=== PATIENT | female | born 1925 | race African-American/Black ===

== ENCOUNTER 2016-06-12 09:40 | Emergency (ER) | payer MEDICARE, OTHER ==
[~2016-06-12] VITALS: Ht 154.9 cm; Wt 51.7 kg
[~2016-06-12 09:40] MED LIST: CALCIUM 500 MG1 EACH PO; DONEPEZIL HCL10 MG ORAL; FISH OIL500 MG PO; IRON45 MG PO; LEVETIRACETAM500 MG ORAL; LISINOPRIL10 MG ORAL; MULTIVITAMINS1 EA11 PO; NORCO 5-325 TA1 EACH ORAL; TYLENOL500 MG PO; VIT B12 PO; VIT C PO; VIT D PO; VIT E PO
[2016-06-12 10:00] VITALS: BP 131/72
--- NOTE | 2016-06-12 11:06 | Diagnostic Imaging Report ---
Indication: Pain Findings: 3 views of the left wrist were obtained. There is an acute nondisplaced fracture of the distal ulna in the region of the metaphysis. The bones are osteopenic. There is soft tissue swelling associated with the fracture. Impression: Acute nondisplaced fracture of the distal ulna.
--- NOTE | 2016-06-12 11:53 | Diagnostic Imaging Report ---
Indication: pain Findings: 3 views of the left hand were obtained. The bones are osteopenic. There is a fracture of the distal right ulnar metaphysis with some soft tissue swelling present. Generalized joint space narrowing noted. Impression: Acute fracture of the distal ulnar metaphysis.
[2016-06-12 12:04] VITALS: BP 131/72
--- NOTE | 2016-06-13 07:48 | Emergency Room Report ---
History of Present Illness General Chief Complaint: Upper Extremity Injury Source: Patient, Family Member Present Illness HPI Patient present with family for complaints of pain to the left hand and wrist Approximately 6 days ago patient had an injury where she hit her hand on the car door Since then has had continued swelling patient has continued to complain of the discomfort in that area and patient was brought in for further eval No complaints of elbow pain or shoulder pain there was no other reports a fall it is difficult to obtain a numerical reports of the pain however approximately 08/03 No reports of syncope or other fall Allergies: Coded Allergies: No Known Allergies (Unverified , 08/03/15) Patient History Past Medical History: see triage record Pertinent Family History: none Last Menstrual Period: na Reviewed Nursing Documentation: PMH: Agreed, PSxH: Agreed Nursing Documentation-PMH Past Medical History: No History, Except For Hx Hypertension: Yes Hx Cancer: No Hx Gastrointestinal Problems: No Hx Neurological Problems: Yes Hx Dementia: Yes Hx Seizures: Yes Review of Systems All Other Systems: negative except mentioned in HPI Physical Exam Vital Signs Date Time Temp Pulse Resp B/P Pulse Ox O2 Delivery O2 Flow Rate FiO2 06/12/16 09:45 98.6 62 18 131/72 100 Room Air Sp02 EP Interpretation: reviewed, normal General Appearance: well appearing, no apparent distress Head: normocephalic, atraumatic Eyes: bilateral eye EOMI, bilateral eye PERRL ENT: normal pharynx, no angioedema Neck: normal inspection, full range of motion, supple Respiratory: normal breath sounds Cardiovascular #1: regular rate, rhythm Gastrointestinal: soft, no mass Musculoskeletal: other - Patient has swelling of the distal ulnar, mild swelling of the dorsal lateral hand Neurologic: alert, oriented x3 Skin: other - As noted above Procedures Splinting Progress volar splint applied to the left hand and wrist, this does immobilize the wrist well Patient remains neurovascularly intact on recheck myself Medical Decision Making Diagnostic Impression: Primary Impression: wrist fracture ER Course Patient's imaging study reveals a distal ulnar fracture Given the patient's age and mobility difficulty the most appropriate splint was applied This injury occurred 6 days ago Patient did refuse any medications here in the emergency room In a stable for close outpatient follow Other X-Ray Diagnostic Results Other X-Ray Diagnostic Results #1: EP Interpretation: Yes Findings: no dislocation, other - Distal ulnar fracture Number of Views: 3 - left wrist Other X-Ray Diagnostic Results #2: EP Interpretation: Yes Findings: no fractures, no dislocation, no soft tissue swelling Number of Views: 3 - left hand Last Vital Signs Date Time Temp Pulse Resp B/P Pulse Ox O2 Delivery O2 Flow Rate FiO2 06/12/16 12:04 98.6 62 18 131/72 100 Room Air Status: improved Disposition: HOME, SELF-CARE Condition: Improved Referrals: NON PHYSICIAN (PCP) NESS MERCEDES Patient Instructions: Ulnar Fracture Additional Instructions: Patient is provided with the discharge instructions notified to follow up with primary doctor in the next 2-3 days otherwise return to the er with any worsening symptoms. REBA COSBY D.O. Jun 13, 2016 07:48
== END 2016-06-12 12:06 | disposition home or self-care (01) ==
LOC: EMR 10:35
DX: S52.602A Unspecified fracture of lower end of left ulna, initial encounter for closed fracture (principal); I10 Essential (primary) hypertension; F03.90 Unspecified dementia, unspecified severity, without behavioral disturbance, psychotic disturbance, mood disturbance, and anxiety; W22.09XA Striking against other stationary object, initial encounter; Y92.810 Car as the place of occurrence of the external cause; Y99.8 Other external cause status
CPT/HCPCS: 99283

== ENCOUNTER 2016-10-25 21:45 | Inpatient (IN) | payer OTHER ==
[~2016-10-25] VITALS: Ht 172.7 cm; Wt 50.3 kg
[2016-10-25 22:30] VITALS: BP 154/51
[2016-10-26] VITALS (7 sets, daily range): BP systolic 134–171; BP diastolic 60–83
--- NOTE | 2016-10-26 00:39 | Emergency Room Report ---
History of Present Illness General Chief Complaint: Multiple Trauma/Fall Source: Family Member Present Illness HPI Patient is a 89-year-old female brought in for a fall. The patient noted be and ambulatory after she fell. She reported having increased pain to her right hip as well as to her low back. Patient prior history of recent falls. The patient reported having no numbness to her extremities. She reported being able to move her leg. She stated that she had worsened pain with movement and was sharp in nature. Allergies: Coded Allergies: No Known Allergies (Unverified , 08/03/15) Patient History Past Medical History: see triage record Last Menstrual Period: Menopause Now: No Reviewed Nursing Documentation: PMH: Agreed, PSxH: Agreed Nursing Documentation-PMH Past Medical History: No History, Except For Hx Hypertension: Yes Hx Cancer: No Hx Gastrointestinal Problems: No Hx Neurological Problems: Yes Hx Dementia: Yes Hx Seizures: Yes Review of Systems All Other Systems: negative except mentioned in HPI Physical Exam Vital Signs Date Time Temp Pulse Resp B/P Pulse Ox O2 Delivery O2 Flow Rate FiO2 10/25/16 22:02 98.6 69 16 120/86 98 Room Air Sp02 EP Interpretation: reviewed, normal General Appearance: normal inspection, well appearing, no apparent distress, alert Head: atraumatic ENT: normal ENT inspection, hearing grossly normal, normal voice Neck: normal inspection, full range of motion, supple, no bony tend Respiratory: normal inspection, lungs clear, normal breath sounds, no respiratory distress, no retraction, no wheezing Cardiovascular #1: regular rate, rhythm, no edema Gastrointestinal: normal inspection, normal bowel sounds, non tender, soft, no guarding, no hernia Genitourinary: no CVA tenderness Musculoskeletal: normal inspection, normal range of motion, other - tenderness to lower back Neurologic: normal inspection, alert, responsive, speech normal, motor weakness Psychiatric: mood/affect normal Skin: normal inspection, normal color, no rash Medical Decision Making Diagnostic Impression: Primary Impression: Fall Additional Impressions: Closed right hip fracture Spondylolisthesis at L4-L5 level ER Course Patient presented after fall. Differential diagnosis included was not limited to neck fracture, CVA, close head injury, syncopal episode, basilar ischemia, hip fracture among others. The patient presented at her baseline mental status per family. Patient was noted to have pain to her right hip CT imaging of the lumbar spine as well as abdomen pelvis was obtained. Have the showed some spondylolisthesis L4 over L5 as well as a fracture of the right femoral neck. Patient was discussed with Dr. Jani Elam for inpatient management. Emely was contacted for orthopedic consult. Labs Test 10/26/16 01:10 White Blood Count 8.0 K/UL (4.8-10.8) Red Blood Count 3.41 M/UL (4.20-5.40) Hemoglobin 10.2 G/DL (12.0-16.0) Hematocrit 32.6 % (37.0-47.0) Mean Corpuscular Volume 96 FL (80-99) Mean Corpuscular Hemoglobin 30.0 PG (27.0-31.0) Mean Corpuscular Hemoglobin Concent 31.3 G/DL (32.0-36.0) Red Cell Distribution Width 12.2 % (11.6-14.8) Platelet Count 143 K/UL (150-450) Mean Platelet Volume 7.6 FL (6.5-10.1) Neutrophils (%) (Auto) 79.5 % (45.0-75.0) Lymphocytes (%) (Auto) 9.9 % (20.0-45.0) Monocytes (%) (Auto) 9.5 % (1.0-10.0) Eosinophils (%) (Auto) 0.7 % (0.0-3.0) Basophils (%) (Auto) 0.3 % (0.0-2.0) EKG Diagnostic Results Rate: normal - 78 Rhythm: NSR ST Segments: no acute changes Chest X-Ray Diagnostic Results EP Interpretation: Yes Findings: no consolidation, no effusion, no pneumothorax, no acute cardiopulmonary disease Number of Views: 1 Last Vital Signs Date Time Temp Pulse Resp B/P Pulse Ox O2 Delivery O2 Flow Rate FiO2 10/25/16 22:30 74 18 154/51 100 Room Air 10/25/16 22:02 98.6 Status: unchanged Disposition: ADMITTED INPATIENT Condition: Serious Referrals: NON PHYSICIAN (PCP) Winston Thacker Oct 26, 2016 00:38
[2016-10-26 01:31] LABS: BASOPHILS % (AUTO) 0.3 % (0.0-2.0); EOSINOPHILS % (AUTO) 0.7 % (0.0-3.0); LYMPHOCYTES % (AUTO) 9.9 % (20.0-45.0); MEAN CORPUSCULAR HGB CONC 31.3 G/DL (32.0-36.0); MEAN CORPUSCULAR VOLUME 96 FL (80-99); MEAN PLATELET VOLUME 7.6 FL (6.5-10.1); MONOCYTES % (AUTO) 9.5 % (1.0-10.0); NEUTROPHILS % (AUTO) 79.5 % (45.0-75.0); PLATELET COUNT 143 K/UL (150-450); RED BLOOD COUNT 3.41 M/UL (4.20-5.40); RED CELL DISTRIBUTION WIDTH 12.2 % (11.6-14.8)
[2016-10-26 01:43] LABS: INR 0.9 (0.9-1.1); PROTHROMBIN TIME 9.7 SEC (9.30-11.50)
[2016-10-26 01:46] LABS: ALANINE AMINOTRANSFERASE 26 U/L (3-33); ALBUMIN/GLOBULIN RATIO 1.5 (1.0-2.7); ANION GAP 17 (5-15); ASPARTATE AMINO TRANSFERASE 25 U/L (5-40); CALCIUM 9.8 mg/dL (8.6-10.2); CARBON DIOXIDE 24 mEQ/L (20-30); CHLORIDE 96 mEQ/L (98-107); CREATININE 1.6 mg/dL (0.5-0.9); HEMOLYSIS 3; POTASSIUM 5.1 mEQ/L (3.4-4.9); SODIUM 137 mEQ/L (135-145); TROPONIN I < 0.30 ng/mL (<=0.30)
[2016-10-26] MEDS ORDERED: Morphine Sulfate 2mg/ml Inj IVP ONE (02:00)
[2016-10-26] MEDS ORDERED: PROCRIT10000 UNIT SUBQ (02:51)
[2016-10-26] MEDS ORDERED: LEVETIRACETAM750 MG ORAL (02:51)
[2016-10-26] MEDS ORDERED: B COMPLEX1 EACH ORAL (02:51)
[2016-10-26] MEDS ORDERED: COLACE100 MG ORAL ×2 (02:51)
[2016-10-26] MEDS ORDERED: ASPIR 8181 MG ORAL (02:51)
[2016-10-26] MEDS ORDERED: Morphine Sulfate 2mg/ml Inj IVP PRN (06:15)
[2016-10-26] MEDS ORDERED: Miralax 17gm pkt ORAL PRN (06:15)
[2016-10-26] MEDS ORDERED: Zolpidem 5mg tab ORAL PRN (06:15)
[2016-10-26] MEDS ORDERED: Mylanta II UD 30ml ORAL PRN (06:15)
[2016-10-26] MEDS ORDERED: LORazepam Inj 2mg/ml 1ml IV PRN (06:15)
--- NOTE | 2016-10-26 08:30 | Consultation ---
Consult Note Consult Note 89 yo female with mechanical fall and rt hip pain CT Rt femoral neck fracture d/w pt rec for ORIF with pinning vs holly arthroplasty. Will order STAT pelvic XRay to confirm surgical plan plan for OR tomorrow. risks discussed RAUL KERN Oct 26, 2016 08:30
[2016-10-26] MEDS ORDERED: Sodium Polystyrene Sulfonate 15gm Powder ORAL ONE (09:45)
--- NOTE | 2016-10-26 09:49 | Diagnostic Imaging Report ---
Indication: Back pain Technique: Continuous helical transaxial imaging of the lumbar spine was obtained from the lung bases to the pubic symphysis. No IV contrast was administered. Coronal 2-D reformats were also obtained. Study obtained in a Siemens sensation [address] Total Dose length Product (DLP): [address] Dose Index Volume (CTDIvol): 12 mGy Comparison: None Findings: There is no acute fracture identified. Bones are osteopenic. At L4-5 there is anterolisthesis grade 1-2 associated with narrowed vacuum disc and osteophytes. Moderate facet arthropathy noted at this level with hypertrophied regular facets. There is narrowing of the neural foramen and lateral recess bilaterally. There is central stenosis at this level. No definite pars interarticularis defect is identified. L2-3 L3-4 also demonstrates central stenosis, lateral recess stenosis and bilateral neural foraminal narrowing. L1-2 shows bilateral neural foraminal stenosis due to facet arthropathy. L5-S1 intervertebral fusion is noted. Vacuum phenomena and osteophytes noted within the sacroiliac joints bilaterally. Arterial vascular calcifications in the aorta iliac arteries noted. Impression: No acute injury. Moderate spondylosis at multiple levels resulting in variable degrees of central, lateral recess and neural foraminal stenosis. This may be better evaluated with MRI. L4-5 anterolisthesis. No associated spondylolysis. Osteoporosis Atherosclerotic vascular disease. [facility] has communicated the preliminary results to the Emergency Department. Their findings are largely concordant with this report. The CT scanner at [facility] is accredited by the [employer] and the scans are performed using dose optimization techniques as appropriate to a performed exam including Automatic Exposure control.
[2016-10-26] MEDS: Donepezil 10mg tab ORAL SCH (10:25)
--- NOTE | 2016-10-26 10:33 | Diagnostic Imaging Report ---
Indication: With pain and trauma Technique: Continuous helical transaxial imaging of the pelvis was obtained from the iliac crest to the pubic symphysis. Coronal 2-D reformats were also obtained. Study obtained in a Siemens sensation [address] Intravenous non-ionic contrast was administered. Total Dose length Product (DLP): [address] Dose Index Volume (CTDIvol): 10.2 mGy Comparison: None Findings: No acute fracture is identified. The bones are osteopenic. Degenerative changes of both hips are noted with osteophyte formation and narrowing. There is a fracture of the right femoral neck. The fracture appears older as there is sclerosis at the endosteal or fractured ends of the bone. There is slight impaction of the fracture noted. There is no soft tissue swelling. Moderate mural calcification involving the iliac arteries noted. Impression: Old fracture of the right femoral neck with impaction. Degenerative changes of both hip joints and sacroiliac joints Osteoporosis Atherosclerotic vascular disease The CT scanner at [facility] is accredited by the [employer] and the scans are performed using dose optimization techniques as appropriate to a performed exam including Automatic Exposure control.
--- NOTE | 2016-10-26 11:57 | Diagnostic Imaging Report ---
Indication: Dyspnea Comparison: 01/28/11 A single view chest radiograph was obtained. Findings: The bones are osteopenic. The heart is normal in size. Aorta is calcified. Impression: No acute disease
--- NOTE | 2016-10-26 13:20 | Diagnostic Imaging Report ---
Indication: pain Findings: Single AP view of the pelvis was performed. There is a fracture of the right femoral neck with impaction. On the plain film examination the fracture appears acute to subacute. By CT, there was sclerosis at the fracture ends consistent with callus formation as part of the healing process. The bones are osteopenic. There is a Franco catheter present. Impression: Subacute fracture of the right femoral neck
--- NOTE | 2016-10-26 14:33 | Consultation ---
History of Present Illness General Chief Complaint: Multiple Trauma/Fall Present Illness Allergies: Coded Allergies: No Known Allergies (Unverified , 08/03/15) Medication History Scheduled Acetaminophen* (Tylenol*), 500 MG PO BID, (Reported) Aspirin* (Aspir 81*), 81 MG ORAL DAILY, (Reported) Calcium Carb&Cit/Mag12/Vit D3 (Calcium 500 Mg Tablet), 1 EACH PO DAILY, ( Reported) Docusate Sodium* (Colace*), 100 MG ORAL DAILY, (Reported) Docusate Sodium* (Colace*), 100 MG ORAL TWICE A DAY, (Reported) Donepezil Hcl* (Donepezil Hcl*), 10 MG ORAL DAILY, (Reported) Epoetin Heraclio (Procrit), 10,000 UNIT SUBQ ONCE A WEEK, (Reported) Iron,Carbonyl (Iron), 65 MG PO DAILY, (Reported) Levetiracetam (Levetiracetam), 750 MG ORAL DAILY, (Reported) Levetiracetam* (Levetiracetam*), 500 MG ORAL TWICE A DAY, (Reported) Lisinopril* (Lisinopril*), 5 MG ORAL DAILY, (Reported) Multivitamin (Multivitamins), 1 EACH PO DAILY, (Reported) [place]-3 Fatty Acids (Fish Oil), 500 MG PO DAILY, (Reported) Vitamin B Complex (B Complex), 1 TAB ORAL DAILY, (Reported) [Vit B12], 1,000 PO DAILY, (Reported) [Vit C], 500 MG PO DAILY, (Reported) [Vit D], 1,000 PO DAILY, (Reported) [Vit E], 400 PO DAILY, (Reported) Scheduled PRN Hydrocodone Bit/Acetaminophen 5-325* ([place] 5-325*), 1 TAB ORAL Q4H PRN for For Pain Patient History Healthcare decision maker KARTHIK GARCIA NIECE Resuscitation status Full Code Advanced Directive on File No Physical Exam Last 24 Hour Vital Signs Date Time Temp Pulse Resp B/P Pulse Ox O2 Delivery O2 Flow Rate FiO2 10/26/16 14:00 98.8 92 18 171/74 98 Room Air 10/26/16 08:00 98.6 82 20 145/65 98 Room Air 10/26/16 04:00 98.1 87 20 158/83 95 Room Air 10/26/16 02:55 75 16 150/70 98 Room Air 10/26/16 02:50 98.4 76 17 156/76 98 Room Air 10/26/16 01:00 98.6 10/26/16 00:30 73 18 166/74 99 Room Air 10/25/16 22:30 74 18 154/51 100 Room Air 10/25/16 22:02 98.6 69 16 120/86 98 Room Air Intake and Output 10/25/16 10/26/16 19:00 07:00 Output Total 200 ml Balance -200 ml Output Urine Total 200 ml Laboratory Tests Test 10/26/16 01:10 White Blood Count 8.0 K/UL (4.8-10.8) Red Blood Count 3.41 M/UL (4.20-5.40) L Hemoglobin 10.2 G/DL (12.0-16.0) L Hematocrit 32.6 % (37.0-47.0) L Mean Corpuscular Volume 96 FL (80-99) Mean Corpuscular Hemoglobin 30.0 PG (27.0-31.0) Mean Corpuscular Hemoglobin Concent 31.3 G/DL (32.0-36.0) L Red Cell Distribution Width 12.2 % (11.6-14.8) Platelet Count 143 K/UL (150-450) L Mean Platelet Volume 7.6 FL (6.5-10.1) Neutrophils (%) (Auto) 79.5 % (45.0-75.0) H Lymphocytes (%) (Auto) 9.9 % (20.0-45.0) L Monocytes (%) (Auto) 9.5 % (1.0-10.0) Eosinophils (%) (Auto) 0.7 % (0.0-3.0) Basophils (%) (Auto) 0.3 % (0.0-2.0) Prothrombin Time 9.7 SEC (9.30-11.50) Prothromb Time International Ratio 0.9 (0.9-1.1) Activated Partial Thromboplast Time 26 SEC (23-33) Sodium Level 137 mEQ/L (135-145) Potassium Level 5.1 mEQ/L (3.4-4.9) H Chloride Level 96 mEQ/L (98-107) L Carbon Dioxide Level 24 mEQ/L (20-30) Anion Gap 17 (5-15) H Blood Urea Nitrogen 32 mg/dL (7-23) H Creatinine 1.6 mg/dL (0.5-0.9) H Estimat Glomerular Filtration Rate mL/min (>60) Glucose Level 171 mg/dL (74-106) H Calcium Level 9.8 mg/dL (8.6-10.2) Total Bilirubin < 0.2 mg/dL (0.0-1.2) Aspartate Amino Transf (AST/SGOT) 25 U/L (5-40) Alanine Aminotransferase (ALT/SGPT) 26 U/L (3-33) Alkaline Phosphatase 65 U/L (35-104) Troponin I < 0.30 ng/mL (<=0.30) Total Protein 7.0 g/dL (6.6-8.7) Albumin 4.2 g/dL (3.5-5.2) Globulin 2.8 g/dL Albumin/Globulin Ratio 1.5 (1.0-2.7) Height (Feet): 5 Height (Inches): 8.00 Weight (Pounds): 111 Medications Current Medications Medications (Trade) Dose Ordered Sig/Lucy Route PRN Reason Start Time Stop Time Status Last Admin Dose Admin Acetaminophen (Tylenol) 650 mg Q4H PRN ORAL fever 10/26/16 06:15 11/25/16 06:14 Al Hydroxide/Mg Hydroxide (Mylanta II) 30 ml Q6H PRN ORAL dyspepsia 10/26/16 06:15 11/25/16 06:14 Dextrose (Dextrose 50%) STAT PRN IV Hypoglycemia 10/26/16 06:15 11/25/16 06:14 Donepezil HCl (Aricept) 10 mg DAILY ORAL 10/26/16 09:00 11/25/16 08:59 10/26/16 10:25 Levetiracetam (Keppra) 750 mg DAILY ORAL 10/26/16 09:00 11/25/16 08:59 10/26/16 10:26 Lorazepam (Ativan 2mg/ml 1ml) 0.5 mg Q4H PRN IV For Anxiety 10/26/16 06:15 11/02/16 06:14 Morphine Sulfate (Morphine Sulfate) 1 mg Q4H PRN IVP For Pain 10/26/16 06:15 11/02/16 06:14 Ondansetron HCl (Zofran) 4 mg Q6H PRN IVP Nausea & Vomiting 10/26/16 06:15 11/25/16 06:14 Polyethylene Glycol (Miralax) 17 gm HSPRN PRN ORAL Constipation 10/26/16 06:15 11/25/16 06:14 Zolpidem Tartrate (Ambien) 5 mg HSPRN PRN ORAL Insomnia 10/26/16 06:15 11/25/16 06:14 SABINO CARPENTER Oct 26, 2016 14:33
--- NOTE | 2016-10-26 22:15 | History and Physical Report ---
DATE OF ADMISSION: 10/26/2016 TIME SEEN: 2 p.m. CONSULTANTS: 1. Gabriel Han M.D. 2. Connie Romero M.D. CHIEF COMPLAINT: Fall and right hip fracture. BRIEF HISTORY: The patient is an 89-year-old female who lives at home presents with history of fall. No passing out, apparently slipped, she fell on the right side, sustained a right hip fracture, admitted to medical floor for treatment of the above, currently calm in bed. No complaints. No chest pain. No shortness of breath. No nausea, vomiting, or diarrhea. PAST MEDICAL HISTORY: Spondylolisthesis and weakness. PAST SURGICAL HISTORY: None. MEDICATIONS: Aricept, Keppra, Tylenol, morphine, MiraLAX, Zofran, Ativan, dextrose, Ambien. ALLERGIES: Denies. SOCIAL HISTORY: No smoking. No alcohol. No intravenous drug use. FAMILY HISTORY: Noncontributory. PHYSICAL EXAMINATION: GENERAL: The patient is calm in bed, oriented x2, no acute distress. VITAL SIGNS: Temperature 98, pulse 92, respirations 18, and blood pressure 171/74. CARDIOVASCULAR: No murmur. LUNGS: Distant and clear. ABDOMEN: Positive bowel sounds. Nontender and nondistended. EXTREMITIES: No cyanosis, clubbing, or edema. Right leg slightly shortened about half inch and externally rotated by 45 degrees. NEUROLOGIC: Cranial nerves II through XII are grossly intact. Deep tendon reflexes 2+. Muscle strength 4/5. LABORATORY DATA: Hemoglobin 10.2, otherwise is CBC is normal. BMP shows potassium 5.1, chloride 96. BUN and creatinine of 32 and 1.6. INR 0.9. ASSESSMENT: 1. Fall, right hip fracture. 2. Anemia. 3. Weakness. 4. . 5. Hypertension. PLAN: 1. Continue premedicatoions. 2. OT/PT. 3. Dietary evaluation. 4. CBC and BMP in the morning. 5. Preop for surgery. Dr. Han, Dr. Romero, Dr. Hunter, Dr. Greenberg to consult. We will continue to follow this patient medically. Jani Elam D.O. DR: Rickie JOB#: [id number] CC:
[2016-10-27] VITALS (13 sets, daily range): BP systolic 106–144; BP diastolic 57–78
--- NOTE | 2016-10-27 01:15 | Discharge Summary 2 SIG ---
DATE OF ADMISSION: 10/26/2016 HISTORY OF PRESENT ILLNESS: This is an 89-year-old female, who was brought in after a fall. She had a fall few days ago and was walking and noted to have right hip pain while she was walking. She was brought in to [facility] and noted to have a right femoral neck fracture. Orthopedic consult has been called to recommend treatment, which possibly include surgery. PAST MEDICAL HISTORY: None. PAST SURGICAL HISTORY: None. CURRENT MEDICATIONS: Please see chart. ALLERGIES: No known drug allergies. SOCIAL HISTORY: The patient indicates she ambulates independently at baseline. She has not had any pain in the area. PHYSICAL EXAMINATION: She is a pleasant woman. She is cooperative with examination. She has pain and tenderness on palpation on the right hip with shortening and rotation. She is neurovascularly intact to wiggle her toes and has no significant swelling of the lower extremity. No evidence of skin breakdown. IMAGINING: CT scan of the hip is reviewed. There is evidence of a right femoral neck fracture that appears to be impacted and not significantly displaced. Plain film pelvis x-ray will be ordered to further assess alignment of this area. IMPRESSION: Right hip femoral neck fracture. DISCUSSION: At this time, I discussed with the patient my findings. She has a hip fracture and normally is independent with her activities and I discussed with her both surgical and nonsurgical treatment for this. I recommend at this point going forward with surgery in the form of open reduction internal fixation with percutaneous pinning versus right hip hemiarthroplasty. I have explained both procedures to her and she does verbalize understanding of what needs to be done. Final surgical determination will be based upon the x-rays in accordance with the CT scan at which point, the surgery will be scheduled and planned accordingly. Risks of surgery including nerve injury, vessel injury, , infection, bleeding were discussed. The risks of DVT, PE, risks of fracture, hardware failure, hip dislocation, leg length discrepancy and need for revision surgery were all discussed. She understands she should be on a walker for a short time and will require short-term rehabilitation and she is aware of that. We will get her set up for surgery tomorrow and have her followup with preoperative medical clearance. Bing Muccigrosso, P.A. DR: CAMPBELL JOB#: [id number] CC: RIOS
[2016-10-27 06:20] LABS: BASOPHILS % (AUTO) 0.8 % (0.0-2.0); LYMPHOCYTES % (AUTO) 16.1 % (20.0-45.0); MEAN CORPUSCULAR HEMOGLOBIN 30.2 PG (27.0-31.0); MEAN CORPUSCULAR HGB CONC 31.4 G/DL (32.0-36.0); MEAN CORPUSCULAR VOLUME 96 FL (80-99); MEAN PLATELET VOLUME 7.9 FL (6.5-10.1); MONOCYTES % (AUTO) 14.5 % (1.0-10.0); NEUTROPHILS % (AUTO) 65.6 % (45.0-75.0); PLATELET COUNT 143 K/UL (150-450); RED BLOOD COUNT 3.33 M/UL (4.20-5.40); WHITE BLOOD COUNT 8.1 K/UL (4.8-10.8)
[2016-10-27 06:37] LABS: ALANINE AMINOTRANSFERASE 22 U/L (3-33); ALBUMIN/GLOBULIN RATIO 1.3 (1.0-2.7); ANION GAP 14 (5-15); ASPARTATE AMINO TRANSFERASE 22 U/L (5-40); CALCIUM 9.2 mg/dL (8.6-10.2); CARBON DIOXIDE 28 mEQ/L (20-30); CHLORIDE 96 mEQ/L (98-107); CHOLESTEROL 212 mg/dL (< 200); CHOLESTEROL/HDL RATIO 2.1 (3.3-4.4); CREATININE 1.5 mg/dL (0.5-0.9); HEMOLYSIS 1; LDL CHOLESTEROL (CALC.) 104 mg/dL (60-99); POTASSIUM 3.8 mEQ/L (3.4-4.9); SODIUM 138 mEQ/L (135-145); TOTAL PROTEIN 6.9 g/dL (6.6-8.7)
[2016-10-27] MEDS ORDERED: Bacitracin 50000 Units Vial ONE (07:36)
--- NOTE | 2016-10-27 07:46 | Pre-Procedure Note/Attestation ---
Pre-Procedure Note/Attestation Complete Prior to Procedure Planned Procedure: right Procedure Narrative: rt hip ORIF Indications for Procedure Pre-Operative Diagnosis: rt hip fracture Attestation I attest that I discussed the nature of the procedure; its benefits; risks and complications; and alternatives (and the risks and benefits of such alternatives ), prior to the procedure, with the patient (or the patient's legal licensing representative). I attest that, if there was a reasonable possibility of needing a blood transfusion, the patient (or the patient's legal licensing representative) was given the [facility] standardized written summary, pursuant to the [place] Blood Safety Act ([place] Health and Safety Code # 1645, as amended). I attest that I re-evaluated the patient just prior to the surgery and that there has been no change in the patient's H&P, except as documented below:NONE NESS MERCEDES Oct 27, 2016 07:46
[2016-10-27] MEDS ORDERED: HYDROmorphone 1mg/ml Carpuject SUBQ PRN (08:00)
[2016-10-27] MEDS ORDERED: Norco 5mg/325mg tab ORAL PRN ×2 (08:00→09:15)
[2016-10-27] MEDS ORDERED: Morphine Sulfate PF 10 ML ONE (08:01)
[2016-10-27] MEDS ORDERED: Bupivacaine 0.5% Inj 30 ml vial INJ ONE (08:01)
[2016-10-27] MEDS ORDERED: LR 1000ml 1,000 ML IVLG SCH (09:14)
--- NOTE | 2016-10-27 09:14 | Anethesia Preoperative Eval ---
Anesthesia Pre-op PMH/ROS General Date of Evaluation: Oct 27, 2016 Time of Evaluation: 08:01 Anesthesiologist: Elias ASA Score: ASA 3 - Emergency Mallampati Score Class I : Soft palate, uvula, fauces, pillars visible Class II: Soft palate, uvula, fauces visible Class III: Soft palate, base of uvula visible Class IV: Only hard plate visible Mallampati Classification: Class II Surgeon: Emely Diagnosis: R Hip Fracture Surgical Procedure: ORIF R Hip Fracture Anesthesia History: none Family History: no anesthesia problems Allergies: Coded Allergies: No Known Allergies (Unverified , 08/03/15) Medications: see eMAR Past Medical History Cardiovascular: Reports: HTN Gastrointestinal/Genitourinary: Reports: GERD Neurologic/Psychiatric: Reports: dementia, other - Seizures Hematology/Immune: Reports: anemia PSxH Narrative: Wrist Fracture Anesthesia Pre-op Phys. Exam Physician Exam Last Vital Signs Date Time Temp Pulse Resp B/P Pulse Ox O2 Delivery O2 Flow Rate FiO2 10/27/16 08:12 97.7 86 20 141/62 96 Room Air Constitutional: NAD Neurologic: CN 2-12 intact Cardiovascular: RRR Respiratory: CTA Gastrointestinal: S/NT/ND Airway Exam Mallampati Score: Class II MO: limited ROM: limited Teeth: missing Anesthesia Pre-op A/P Labs Hematology Test 10/27/16 05:10 White Blood Count 8.1 K/UL (4.8-10.8) Red Blood Count 3.33 M/UL (4.20-5.40) L Hemoglobin 10.1 G/DL (12.0-16.0) L Hematocrit 32.1 % (37.0-47.0) L Mean Corpuscular Volume 96 FL (80-99) Mean Corpuscular Hemoglobin 30.2 PG (27.0-31.0) Mean Corpuscular Hemoglobin Concent 31.4 G/DL (32.0-36.0) L Red Cell Distribution Width 12.0 % (11.6-14.8) Platelet Count 143 K/UL (150-450) L Mean Platelet Volume 7.9 FL (6.5-10.1) Neutrophils (%) (Auto) 65.6 % (45.0-75.0) Lymphocytes (%) (Auto) 16.1 % (20.0-45.0) L Monocytes (%) (Auto) 14.5 % (1.0-10.0) H Eosinophils (%) (Auto) 3.0 % (0.0-3.0) Basophils (%) (Auto) 0.8 % (0.0-2.0) Chemistry Test 10/27/16 05:10 Sodium Level 138 mEQ/L (135-145) Potassium Level 3.8 mEQ/L (3.4-4.9) Chloride Level 96 mEQ/L (98-107) L Carbon Dioxide Level 28 mEQ/L (20-30) Anion Gap 14 (5-15) Blood Urea Nitrogen 23 mg/dL (7-23) Creatinine 1.5 mg/dL (0.5-0.9) H Estimat Glomerular Filtration Rate mL/min (>60) Glucose Level 129 mg/dL (74-106) H Calcium Level 9.2 mg/dL (8.6-10.2) Total Bilirubin < 0.2 mg/dL (0.0-1.2) Aspartate Amino Transf (AST/SGOT) 22 U/L (5-40) Alanine Aminotransferase (ALT/SGPT) 22 U/L (3-33) Alkaline Phosphatase 67 U/L (35-104) Total Protein 6.9 g/dL (6.6-8.7) Albumin 4.0 g/dL (3.5-5.2) Globulin 2.9 g/dL Albumin/Globulin Ratio 1.3 (1.0-2.7) Triglycerides Level 45 mg/dL (< 150) Cholesterol Level 212 mg/dL (< 200) H LDL Cholesterol 104 mg/dL (60-99) H HDL Cholesterol 99 mg/dL (> 60) H Cholesterol/HDL Ratio 2.1 (3.3-4.4) L Thyroid Stimulating Hormone (TSH) 2.240 uIU/mL (0.300-4.500) Risk Assessment & Plan Assessment: ASA 3E Plan: Spinal, GA Status Change Before Surgery: No Pre-Antibiotics Dru Gram Ancef IV Given Within 1 Hr of Incision: Yes Time Given: 08:39 Augie Griffin MD Oct 27, 2016 09:14
[2016-10-27] MEDS ORDERED: Hydromorphone 0.5mg/0.5ml inj IVP PRN (09:15)
[2016-10-27] MEDS ORDERED: DiphenhydrAMINE 50mg/ml Inj IVP PRN (09:15)
[2016-10-27] MEDS ORDERED: LORazepam Inj 2mg/ml 1ml IV PRN (09:15)
[2016-10-27] MEDS ORDERED: Midazolam 2mg/2ml Inj IVP PRN (09:15)
[2016-10-27] MEDS ORDERED: Metoclopramide 10mg/2ml Inj IVP PRN (09:15)
[2016-10-27] MEDS ORDERED: Norco 7.5mg/325mg tab ORAL PRN (09:15)
[2016-10-27] MEDS ORDERED: Meperidine 25mg/0.5ml Inj IV PRN (09:15)
[2016-10-27] MEDS ORDERED: fentaNYL 100 mcg/2 mL IV PRN (09:15)
[2016-10-27] MEDS ORDERED: Oxycodone/Acetaminophen 5-325 ORAL PRN (09:15)
[2016-10-27] MEDS ORDERED: Atropine Inj 1mg/10ml Syr IV PRN (09:15)
--- NOTE | 2016-10-27 09:18 | Brief Operative Note ---
Immediate Post Operative Note Operative Note Chief Complaint: rt hip pain Pre-op Diagnosis: rt hip fracture Procedure: rt hip ORIF Post-op Diagnosis: same as pre-op Findings: consistent w/pre-op dx studies Surgeon: md courtney Quiller Machine Fixer: pino euceda Anesthesiologist: md shalom Anesthesia: general Specimen: none Complications: none Condition: stable Estimated Blood Loss: minimal Drains: none Implant(s) used?: Yes - RAUL Roberts Oct 27, 2016 09:18
--- NOTE | 2016-10-27 09:20 | Immediate Post-Op Evaluation ---
Immediate Post-Op Evalulation Immediate Post-Op Evalulation Procedure: R Hip Fracture Date of Evaluation: Oct 27, 2016 Time of Evaluation: 09:42 IV Fluids: 300 LR Blood Products: 0 Estimated Blood Loss: 50 Urinary Output: 0 Blood Pressure Systolic: 112 Blood Pressure Diastolic: 57 Pulse Rate: 99 Respiratory Rate: 16 O2 Sat by Pulse Oximetry: 100 Temperature (Fahrenheit): 98 Pain Score (1-10): 0 Nausea: No Vomiting: No Complications 0 Patient Status: awake, reacts, patent, none Hydration Status: adequate Dru Gram Ancef IV Given Within 1 Hr of Incision: Yes Time Given: 08:39 Augie Griffin MD Oct 27, 2016 09:20
--- NOTE | 2016-10-27 09:21 | 48 Hour Post Anesthesia Eval ---
Post Anesthesia Evaluation Procedure: R Hip Fracture Date of Evaluation: Oct 27, 2016 Time of Evaluation: 11:54 Blood Pressure Systolic: 110 0: 71 Pulse Rate: 89 Respiratory Rate: 18 Temperature (Fahrenheit): 98.3 O2 Sat by Pulse Oximetry: 100 Airway: patent Nausea: No Vomiting: No Pain Intensity: 0 Hydration Status: adequate Cardiopulmonary Status: Stable Mental Status/LOC: patient returned to baseline Follow-up Care/Observations: 0 Post-Anesthesia Complications: 0 Follow-up care needed: N/A Augie Griffin MD Oct 27, 2016 09:21
--- NOTE | 2016-10-27 10:30 | General Progress Note ---
Assessment/Plan Problem List: (1) Ribs, multiple fractures ICD Codes: S22.49XA - Multiple fractures of ribs, unspecified side, initial encounter for closed fracture SNOMED: 2068898 (2) Spondylolisthesis at L4-L5 level ICD Codes: M43.16 - Spondylolisthesis, lumbar region SNOMED: 956356636 (3) Fall ICD Codes: W19.XXXA - Unspecified fall, initial encounter SNOMED: 1711817 (4) Closed right hip fracture ICD Codes: S72.001A - Fracture of unspecified part of neck of right femur, initial encounter for closed fracture SNOMED: 673061428 Status: stable, progressing, tolerating diet Assessment/Plan ot pt dit pain control cbc bmp am aru eval Subjective Constitutional: Reports: weakness Allergies: Coded Allergies: No Known Allergies (Unverified , 08/03/15) All Systems: reviewed and negative except above Subjective o2nc s/p sx Objective Last 24 Hour Vital Signs Date Time Temp Pulse Resp B/P Pulse Ox O2 Delivery O2 Flow Rate FiO2 10/27/16 10:20 15 129/66 98 Room Air 10/27/16 10:10 97.8 19 117/63 97 Room Air 10/27/16 10:00 17 114/66 98 Room Air 10/27/16 09:50 20 118/64 97 Room Air 10/27/16 09:45 14 115/59 98 Room Air 10/27/16 09:40 18 106/57 100 Room Air 10/27/16 09:35 17 119/58 100 Room Air 10/27/16 09:34 89 18 100 10/27/16 09:33 99 16 100 10/27/16 09:31 98.0 16 144/78 100 Room Air 10/27/16 08:12 97.7 86 20 141/62 96 Room Air 10/27/16 04:00 98.2 78 20 133/69 100 Room Air 10/27/16 00:00 98.4 20 134/61 96 Room Air 10/26/16 22:23 97.9 10/26/16 20:00 97.9 83 20 143/60 99 Room Air 10/26/16 16:39 98.0 88 15 134/71 100 Room Air 10/26/16 14:00 98.8 92 18 171/74 98 Room Air Intake and Output 10/26/16 10/27/16 19:00 07:00 Intake Total 700 ml Output Total 600 ml Balance 100 ml Intake Oral 700 ml Output Urine Total 600 ml # Voids 2 Laboratory Tests 10/27/16 05:10: White Blood Count 8.1, Red Blood Count 3.33L, Hemoglobin 10.1L, Hematocrit 32.1L , Mean Corpuscular Volume 96, Mean Corpuscular Hemoglobin 30.2, Mean Corpuscular Hemoglobin Concent 31.4L, Red Cell Distribution Width 12.0, Platelet Count 143L, Mean Platelet Volume 7.9, Neutrophils (%) (Auto) 65.6, Lymphocytes (%) (Auto) 16.1L, Monocytes (%) (Auto) 14.5H, Eosinophils (%) (Auto ) 3.0, Basophils (%) (Auto) 0.8, Sodium Level 138, Potassium Level 3.8, Chloride Level 96L, Carbon Dioxide Level 28, Anion Gap 14, Blood Urea Nitrogen 23, Creatinine 1.5H, Estimat Glomerular Filtration Rate , Glucose Level 129H, Calcium Level 9.2, Total Bilirubin < 0.2, Aspartate Amino Transf (AST/SGOT) 22, Alanine Aminotransferase (ALT/SGPT) 22, Alkaline Phosphatase 67, Total Protein 6.9, Albumin 4.0, Globulin 2.9, Albumin/Globulin Ratio 1.3, Triglycerides Level 45, Cholesterol Level 212H, LDL Cholesterol 104H, HDL Cholesterol 99H, Cholesterol/HDL Ratio 2.1L, Thyroid Stimulating Hormone (TSH) 2.240 Height (Feet): 5 Height (Inches): 8.00 Weight (Pounds): 111 General Appearance: lethargic EENT: normal ENT inspection Neck: normal alignment Cardiovascular: normal peripheral pulses, normal rate, regular rhythm Respiratory/Chest: chest wall non-tender, lungs clear, normal breath sounds Abdomen: normal bowel sounds, non tender, soft Extremities: normal inspection Edema: no edema noted Arm (L), no edema noted Arm (R), no edema noted Leg (L), no edema noted Leg (R), no edema noted Pedal (L), no edema noted Pedal (R), no edema noted Generalized Neurologic: motor weakness Skin: normal pigmentation, warm/dry IDA QUAN Oct 27, 2016 10:30
--- NOTE | 2016-10-27 11:13 | Diagnostic Imaging Report ---
Indication: Status post right hip surgery Findings: Single AP view of the pelvis was performed. 3 taylor pins are noted the right hip. Fracture and hardware alignment appears satisfactory. Soft tissue air noted. Bones are osteopenic. Franco catheter is present. This Impression: Status post open reduction, internal fixation of a right femoral neck fracture. No complications identified
--- NOTE | 2016-10-27 11:20 | Diagnostic Imaging Report ---
Indication: Right hip fracture. ORIF Comparison: None Findings: Intraoperative images of right hip joint and reduction of femoral neck fracture showing 3 pins reducing the fracture. Impression: Intraoperative imaging
[2016-10-27] MEDS: Donepezil 10mg tab ORAL SCH (12:06)
--- NOTE | 2016-10-27 14:21 | Pulmonology Progress Note ---
Assessment/Plan Assessment/Plan ASSESSMENT s/p fall Right hip femoral neck fracture. s/p Right hip ORIF postoperative pain Hx of HTN PLAN OF CARE MS floor s/p /3 R hip ORIF pain management diet as tolerated in am start a/coagulation with Lovenox in am start PT/OT eval and Rx patient with good ambulatory status prior to fall BP stable, normotensive, no need for anti HTN medications at this time, monitor clsoely dressing C/D/I, monitor IS at the bedside IVF empiric abx x 2, then dc bowel regimen case discussed and evaluated by supervising physician Subjective Allergies: Coded Allergies: No Known Allergies (Unverified , 08/03/15) Subjective s/p surgery this am no complete return of sensation yet denies pain afebrile daughter at the bedside Objective Last 24 Hour Vital Signs Date Time Temp Pulse Resp B/P Pulse Ox O2 Delivery O2 Flow Rate FiO2 10/27/16 10:20 15 129/66 98 Room Air 10/27/16 10:10 97.8 19 117/63 97 Room Air 10/27/16 10:00 17 114/66 98 Room Air 10/27/16 09:50 20 118/64 97 Room Air 10/27/16 09:45 14 115/59 98 Room Air 10/27/16 09:40 18 106/57 100 Room Air 10/27/16 09:35 17 119/58 100 Room Air 10/27/16 09:34 89 18 100 10/27/16 09:33 99 16 100 10/27/16 09:31 98.0 16 144/78 100 Room Air 10/27/16 08:12 97.7 86 20 141/62 96 Room Air 10/27/16 04:00 98.2 78 20 133/69 100 Room Air 10/27/16 00:00 98.4 20 134/61 96 Room Air 10/26/16 22:23 97.9 10/26/16 20:00 97.9 83 20 143/60 99 Room Air 10/26/16 16:39 98.0 88 15 134/71 100 Room Air Intake and Output 10/26/16 10/27/16 19:00 07:00 Intake Total 700 ml Output Total 600 ml Balance 100 ml Intake Oral 700 ml Output Urine Total 600 ml # Voids 2 General Appearance: no acute distress, other - elderly AA female in NAD HEENT: normocephalic, atraumatic, anicteric, mucous membranes moist Respiratory/Chest: lungs clear, no respiratory distress, no accessory muscle use Cardiovascular: normal rate, regular rhythm, no JVD Abdomen: normal bowel sounds, soft, non tender, non distended Genitourinary: normal external genitalia Extremities: no edema Skin: other - R hip dressign C/D/I Neurologic/Psychiatric: abnormal gait, alert, responsive Musculoskeletal: atrophy - BLE Laboratory Tests 10/27/16 05:10: White Blood Count 8.1, Red Blood Count 3.33L, Hemoglobin 10.1L, Hematocrit 32.1L , Mean Corpuscular Volume 96, Mean Corpuscular Hemoglobin 30.2, Mean Corpuscular Hemoglobin Concent 31.4L, Red Cell Distribution Width 12.0, Platelet Count 143L, Mean Platelet Volume 7.9, Neutrophils (%) (Auto) 65.6, Lymphocytes (%) (Auto) 16.1L, Monocytes (%) (Auto) 14.5H, Eosinophils (%) (Auto ) 3.0, Basophils (%) (Auto) 0.8, Sodium Level 138, Potassium Level 3.8, Chloride Level 96L, Carbon Dioxide Level 28, Anion Gap 14, Blood Urea Nitrogen 23, Creatinine 1.5H, Estimat Glomerular Filtration Rate , Glucose Level 129H, Calcium Level 9.2, Total Bilirubin < 0.2, Aspartate Amino Transf (AST/SGOT) 22, Alanine Aminotransferase (ALT/SGPT) 22, Alkaline Phosphatase 67, Total Protein 6.9, Albumin 4.0, Globulin 2.9, Albumin/Globulin Ratio 1.3, Triglycerides Level 45, Cholesterol Level 212H, LDL Cholesterol 104H, HDL Cholesterol 99H, Cholesterol/HDL Ratio 2.1L, Thyroid Stimulating Hormone (TSH) 2.240 Current Medications Medications (Trade) Dose Ordered Sig/Lucy Route PRN Reason Start Time Stop Time Status Last Admin Dose Admin Acetaminophen (Tylenol) 650 mg Q4H PRN ORAL fever 10/26/16 06:15 11/25/16 06:14 10/26/16 21:16 Acetaminophen (Tylenol) 650 mg Q4H PRN ORAL temp>100 10/27/16 08:00 11/26/16 07:59 Acetaminophen/ Hydrocodone Bitart ([place] 5/325) 2 tab Q6H PRN ORAL Severe Pain (Pain Scale 7-10) 10/27/16 08:00 11/03/16 07:59 Acetaminophen/ Hydrocodone Bitart ([place] 7.5/325) 1 ea Q4H PRN ORAL Moderate Pain (Pain Scale 4-6) 10/27/16 08:00 11/03/16 07:59 Al Hydroxide/Mg Hydroxide 30 ml 30 ml Q6H PRN ORAL dyspepsia 10/26/16 06:15 11/25/16 06:14 Cefazolin Sodium/ Dextrose (Ancef/D5W) 110 ml @ 220 mls/hr EVERY 8 HOURS IV 10/27/16 14:00 10/27/16 22:29 Celecoxib (CeleBREX) 200 mg DAILY ORAL 10/28/16 09:00 11/27/16 08:59 Dextrose (Dextrose 50%) STAT PRN IV Hypoglycemia 10/26/16 06:15 11/25/16 06:14 Dextrose/ Electrolytes 1,000 ml @ 75 mls/hr [id number] IV 10/27/16 14:00 11/26/16 13:59 Docusate Sodium (Colace) 100 mg THREE TIMES A DAY ORAL 10/27/16 18:00 11/26/16 17:59 Donepezil HCl (Aricept) 10 mg DAILY ORAL 10/26/16 09:00 11/25/16 08:59 10/27/16 12:06 Enoxaparin Sodium (Lovenox) 30 mg DAILY SUBQ 10/28/16 09:00 11/27/16 08:59 Ferrous Sulfate (Feosol) 325 mg THREE TIMES A DAY ORAL 10/27/16 18:00 11/26/16 17:59 Hydromorphone HCl (Dilaudid) 1 mg Q4H PRN SUBQ Mild Pain (Pain Scale 1-3) 10/27/16 08:00 11/03/16 07:59 Levetiracetam (Keppra) 750 mg DAILY ORAL 10/26/16 09:00 11/25/16 08:59 10/27/16 12:09 Lorazepam (Ativan 2mg/ml 1ml) 0.5 mg Q4H PRN IV For Anxiety 10/26/16 06:15 11/02/16 06:14 Morphine Sulfate (Morphine Sulfate) 1 mg Q4H PRN IVP For Pain 10/26/16 06:15 11/02/16 06:14 Ondansetron HCl (Zofran) 4 mg Q6H PRN IVP Nausea & Vomiting 10/26/16 06:15 11/25/16 06:14 Polyethylene Glycol (Miralax) 17 gm HSPRN PRN ORAL Constipation 10/26/16 06:15 11/25/16 06:14 Zolpidem Tartrate (Ambien) 5 mg HSPRN PRN ORAL Insomnia 10/26/16 06:15 11/25/16 06:14 [facility]Sravanthi NP Oct 27, 2016 14:21
[2016-10-27] MEDS: ceFAZolin sod 2 GM in D5W 110 ML IV SCH ×2 (14:22→23:09)
[2016-10-27] MEDS: D5 1/2NS w/KCl 20mEq 1,000 ML IV SCH (14:25)
--- NOTE | 2016-10-27 15:51 | Cardiac Electrophysiology PN ---
Subjective Subjective [id number] Objective Last 24 Hour Vital Signs Date Time Temp Pulse Resp B/P Pulse Ox O2 Delivery O2 Flow Rate FiO2 10/27/16 10:20 15 129/66 98 Room Air 10/27/16 10:10 97.8 19 117/63 97 Room Air 10/27/16 10:00 17 114/66 98 Room Air 10/27/16 09:50 20 118/64 97 Room Air 10/27/16 09:45 14 115/59 98 Room Air 10/27/16 09:40 18 106/57 100 Room Air 10/27/16 09:35 17 119/58 100 Room Air 10/27/16 09:34 89 18 100 10/27/16 09:33 99 16 100 10/27/16 09:31 98.0 16 144/78 100 Room Air 10/27/16 08:12 97.7 86 20 141/62 96 Room Air 10/27/16 04:00 98.2 78 20 133/69 100 Room Air 10/27/16 00:00 98.4 20 134/61 96 Room Air 10/26/16 22:23 97.9 10/26/16 20:00 97.9 83 20 143/60 99 Room Air 10/26/16 16:39 98.0 88 15 134/71 100 Room Air Intake and Output 10/26/16 10/27/16 19:00 07:00 Intake Total 700 ml Output Total 600 ml Balance 100 ml Intake Oral 700 ml Output Urine Total 600 ml # Voids 2 Laboratory Tests Test 10/27/16 05:10 White Blood Count 8.1 K/UL (4.8-10.8) Red Blood Count 3.33 M/UL (4.20-5.40) L Hemoglobin 10.1 G/DL (12.0-16.0) L Hematocrit 32.1 % (37.0-47.0) L Mean Corpuscular Volume 96 FL (80-99) Mean Corpuscular Hemoglobin 30.2 PG (27.0-31.0) Mean Corpuscular Hemoglobin Concent 31.4 G/DL (32.0-36.0) L Red Cell Distribution Width 12.0 % (11.6-14.8) Platelet Count 143 K/UL (150-450) L Mean Platelet Volume 7.9 FL (6.5-10.1) Neutrophils (%) (Auto) 65.6 % (45.0-75.0) Lymphocytes (%) (Auto) 16.1 % (20.0-45.0) L Monocytes (%) (Auto) 14.5 % (1.0-10.0) H Eosinophils (%) (Auto) 3.0 % (0.0-3.0) Basophils (%) (Auto) 0.8 % (0.0-2.0) Sodium Level 138 mEQ/L (135-145) Potassium Level 3.8 mEQ/L (3.4-4.9) Chloride Level 96 mEQ/L (98-107) L Carbon Dioxide Level 28 mEQ/L (20-30) Anion Gap 14 (5-15) Blood Urea Nitrogen 23 mg/dL (7-23) Creatinine 1.5 mg/dL (0.5-0.9) H Estimat Glomerular Filtration Rate mL/min (>60) Glucose Level 129 mg/dL (74-106) H Calcium Level 9.2 mg/dL (8.6-10.2) Total Bilirubin < 0.2 mg/dL (0.0-1.2) Aspartate Amino Transf (AST/SGOT) 22 U/L (5-40) Alanine Aminotransferase (ALT/SGPT) 22 U/L (3-33) Alkaline Phosphatase 67 U/L (35-104) Total Protein 6.9 g/dL (6.6-8.7) Albumin 4.0 g/dL (3.5-5.2) Globulin 2.9 g/dL Albumin/Globulin Ratio 1.3 (1.0-2.7) Triglycerides Level 45 mg/dL (< 150) Cholesterol Level 212 mg/dL (< 200) H LDL Cholesterol 104 mg/dL (60-99) H HDL Cholesterol 99 mg/dL (> 60) H Cholesterol/HDL Ratio 2.1 (3.3-4.4) L Thyroid Stimulating Hormone (TSH) 2.240 uIU/mL (0.300-4.500) SOPHIA MANN Oct 27, 2016 15:51
[2016-10-27] MEDS: Docusate 100mg cap ORAL SCH (17:49)
[2016-10-27] MEDS: Metoprolol 25mg tab ORAL SCH (21:00)
--- NOTE | 2016-10-27 21:00 | Operative Note - Dictated ---
DATE OF OPERATION: 10/27/2016 PREOPERATIVE DIAGNOSIS: Right subcapital valgus impacted femoral neck fracture. POSTOPERATIVE DIAGNOSIS: Right subcapital valgus impacted femoral neck fracture. PROCEDURE: Right hip closed reduction and percutaneous pinning using 3 Ames 6.5 mm partially threaded cannulated screws. SURGEON: Gabriel Han M.D. COIN MACHINE ASSEMBLER: Bing Garcia PA-C. ANESTHESIOLOGIST: Augie Griffin M.D. ANESTHESIA: Spinal anesthesia. ESTIMATED BLOOD LOSS: Less than 20 mL. COMPLICATIONS: None. BRIEF HISTORY: The patient is a pleasant 89-year-old female who came in with a right hip fracture after a mechanical fall. She has continued pain. She has had ongoing pain about the right side and x-ray showed an impacted femoral neck fracture. After full discussion of risks and benefits of the surgery and complications associated with it and after she cleared the preoperative clearance, she opted for surgical treatment as described above. Possibility of infection, bleeding, neurovascular complication, possibility of malunion, nonunion, possibility of hardware failure, and possible need for revision to a hemiarthroplasty, possibility of continued pain, possibility of screw penetration and screw backout, and screw penetration through the femoral head, and other complications were discussed with the patient. OPERATIVE PROCEDURE: The patient was brought to the operating table and was placed supine. All pressure points were well padded. Spinal anesthesia was induced and the right leg was placed in traction and left leg was in a well-leg rivas. The right hip was prepped and draped in the usual sterile fashion. Image was brought in and the fracture was reduced as anatomically as possible. Using traction and manipulation of leg, the fracture was reduced although it was impacted and relatively stable. Once this was completed, the right leg was prepped and draped in the usual sterile fashion. Using image intensifier, a small incision was made over the lateral aspect of the femur. Two K-wires were placed from the lateral cortex of the femur into the neck into the head. Position was checked on AP and lateral and appeared to be excellent. At this point, measurements were made and three 85 mm screws were placed in. Ames 6.5 mm partially threaded screws were used. The screws went into the subchondral bone, although they did not penetrate the femoral head. Once this was completed, the guide pins were removed. The position of the screws were checked on AP and lateral and appeared to be intraosseous and all the threads of the screws had crossed the fracture line. The fracture was placed through range of motion with excellent stability. At this point, all wounds were thoroughly irrigated and the tensor fascia was closed using #1 Vicryl suture, subcutaneous tissue was closed using 2-0 Vicryl suture, and skin was closed using 3-0 Monocryl suture. Steri-Strips were applied and the patient tolerated the procedure well without any complications and was taken to recovery room in stable condition. Gabriel Han M.D. DR: REGIS JOB#: [id number] CC: RIOS
[2016-10-28] VITALS (7 sets, daily range): BP systolic 117–164; BP diastolic 56–77
--- NOTE | 2016-10-28 01:08 | Cardiology Report ---
APPROVED REPORT EKG Measurement Heart [id number] Normal sinus rhythm Normal ECG
--- NOTE | 2016-10-28 01:15 | Consultation ---
DATE OF CONSULTATION: 10/27/2016 CARDIOLOGY CONSULTATION REASON FOR CONSULTATION: Management of hypertension. HISTORY OF PRESENT ILLNESS: The patient is an 89-year-old lady with history of hypertension, spondylolisthesis and dementia, who lives at home and presents to the hospital after she had a fall. The patient denies any syncope, apparently she slipped and fell on the right side with result of right hip fracture. The patient was admitted and underwent right hip open reduction and internal fixation by Dr. Han. A Cardiology consultation was obtained for further evaluation and management of her hypertension. PAST MEDICAL HISTORY: 1. Hypertension. 2. Dementia. 3. Right knee joint disease. 4. Recurrent falls. SOCIAL HISTORY: She does not smoke or drink alcohol. FAMILY HISTORY: Noncontributory. REVIEW OF SYSTEMS: Negative other than what was mentioned in the history of present illness. PHYSICAL EXAMINATION: VITAL SIGNS: Blood pressure is 129/66, pulse of 98, respirations 18, and she is afebrile. HEAD AND NECK: No JVD or carotid bruits. LUNGS: Clear. CARDIOVASCULAR: Regular S1 and S2 with no gallop or murmur. ABDOMEN: Soft. EXTREMITIES: Status post right hip open reduction and internal fixation. LABORATORY AND DIAGNOSTIC DATA: Her EKG showed normal sinus rhythm and normal electrocardiogram. Her lab showed white count 8.1, hemoglobin 10.1, hemoglobin 32.1, and platelet of 143,000. Sodium 138, potassium 3.8, BUN of 22, creatinine 1.5 and glucose 129. LDL is 104 and HDL is 99. INR is 0.9. ASSESSMENT AND PLAN: 1. Hypertension. I will start the patient on low-dose beta-kevin especially in view of the patient's tachycardia and continue to follow the patient clinically. Echocardiogram will also be ordered. 2. Status post fall without syncope. We will do an echocardiogram for further evaluation. 3. Right hip fracture status post open reduction and internal fixation. The patient tolerated the surgery well. . Thank very much, Dr. Elam, for allowing me to participate in the care of this patient. Please do not hesitate to contact me for any questions regarding my evaluation. Rommel Greenberg M.D. DR: GRUPO JOB#: [id number] CC:
[2016-10-28] MEDS: D5 1/2NS w/KCl 20mEq 1,000 ML IV SCH ×2 (02:19→14:00)
[2016-10-28] MEDS: Norco 7.5mg/325mg tab ORAL PRN (06:08)
[2016-10-28 07:30] LABS: BASOPHILS % (AUTO) 0.9 % (0.0-2.0); EOSINOPHILS % (AUTO) 2.1 % (0.0-3.0); LYMPHOCYTES % (AUTO) 14.5 % (20.0-45.0); MEAN CORPUSCULAR HEMOGLOBIN 30.9 PG (27.0-31.0); MEAN CORPUSCULAR HGB CONC 32.2 G/DL (32.0-36.0); MEAN CORPUSCULAR VOLUME 96 FL (80-99); MEAN PLATELET VOLUME 7.8 FL (6.5-10.1); MONOCYTES % (AUTO) 17.7 % (1.0-10.0); NEUTROPHILS % (AUTO) 64.8 % (45.0-75.0); PLATELET COUNT 127 K/UL (150-450); RED BLOOD COUNT 2.92 M/UL (4.20-5.40); WHITE BLOOD COUNT 8.7 K/UL (4.8-10.8)
[2016-10-28 07:47] LABS: ANION GAP 13 (5-15); CALCIUM 8.9 mg/dL (8.6-10.2); CARBON DIOXIDE 27 mEQ/L (20-30); CHLORIDE 97 mEQ/L (98-107); CREATININE 1.3 mg/dL (0.5-0.9); HEMOLYSIS 2; POTASSIUM 4.1 mEQ/L (3.4-4.9); SODIUM 137 mEQ/L (135-145)
--- NOTE | 2016-10-28 08:28 | General Progress Note ---
Assessment/Plan Problem List: (1) Ribs, multiple fractures ICD Codes: S22.49XA - Multiple fractures of ribs, unspecified side, initial encounter for closed fracture SNOMED: 3510024 (2) Spondylolisthesis at L4-L5 level ICD Codes: M43.16 - Spondylolisthesis, lumbar region SNOMED: 632691582 (3) Fall ICD Codes: W19.XXXA - Unspecified fall, initial encounter SNOMED: 3315420 (4) Closed right hip fracture ICD Codes: S72.001A - Fracture of unspecified part of neck of right femur, initial encounter for closed fracture SNOMED: 538370551 Status: stable, progressing, tolerating diet Assessment/Plan ot pt dit pain control cbc bmp am aru transfer Subjective Constitutional: Reports: weakness Allergies: Coded Allergies: No Known Allergies (Unverified , 08/03/15) All Systems: reviewed and negative except above Subjective o2nc s/p sx Objective Last 24 Hour Vital Signs Date Time Temp Pulse Resp B/P Pulse Ox O2 Delivery O2 Flow Rate FiO2 10/28/16 04:00 99.3 103 20 129/60 98 Room Air 10/28/16 00:00 98.5 103 20 126/74 98 Room Air 10/27/16 21:00 87 113/68 10/27/16 20:00 98.7 87 20 113/68 99 Room Air 10/27/16 15:48 97.4 98 20 128/65 98 Nasal Cannula 2.0 10/27/16 10:20 15 129/66 98 Room Air 10/27/16 10:10 97.8 19 117/63 97 Room Air 10/27/16 10:00 17 114/66 98 Room Air 10/27/16 09:50 20 118/64 97 Room Air 10/27/16 09:45 14 115/59 98 Room Air 10/27/16 09:40 18 106/57 100 Room Air 10/27/16 09:35 17 119/58 100 Room Air 10/27/16 09:34 89 18 100 10/27/16 09:33 99 16 100 10/27/16 09:31 98.0 16 144/78 100 Room Air Intake and Output 10/27/16 10/28/16 19:00 07:00 Intake Total 930 ml 800 ml Output Total 500 ml 275 ml Balance 430 ml 525 ml Intake Oral 485 ml 800 ml IV Total 445 ml Output Urine Total 500 ml 275 ml # Voids 1 Laboratory Tests 10/28/16 05:25: White Blood Count 8.7, Red Blood Count 2.92L, Hemoglobin 9.0L, Hematocrit 28.0L , Mean Corpuscular Volume 96, Mean Corpuscular Hemoglobin 30.9, Mean Corpuscular Hemoglobin Concent 32.2, Red Cell Distribution Width 12.0, Platelet Count 127L, Mean Platelet Volume 7.8, Neutrophils (%) (Auto) 64.8, Lymphocytes ( %) (Auto) 14.5L, Monocytes (%) (Auto) 17.7H, Eosinophils (%) (Auto) 2.1, Basophils (%) (Auto) 0.9, Sodium Level 137, Potassium Level 4.1, Chloride Level 97L, Carbon Dioxide Level 27, Anion Gap 13, Blood Urea Nitrogen 18, Creatinine 1.3H, Estimat Glomerular Filtration Rate , Glucose Level 115H, Calcium Level 8.9 Height (Feet): 5 Height (Inches): 8.00 Weight (Pounds): 111 General Appearance: lethargic EENT: normal ENT inspection Neck: normal alignment Cardiovascular: normal peripheral pulses, normal rate, regular rhythm Respiratory/Chest: chest wall non-tender, lungs clear, normal breath sounds Abdomen: normal bowel sounds, non tender, soft Extremities: normal inspection Edema: no edema noted Arm (L), no edema noted Arm (R), no edema noted Leg (L), no edema noted Leg (R), no edema noted Pedal (L), no edema noted Pedal (R), no edema noted Generalized Neurologic: responsive Skin: normal pigmentation, warm/dry IDA QUAN Oct 28, 2016 08:28
[2016-10-28] MEDS: Donepezil 10mg tab ORAL SCH (09:43)
[2016-10-28] MEDS: celeBREX 200mg Cap **SURGERY PATIENTS ONLY ORAL SCH (09:44)
[2016-10-28] MEDS: Docusate 100mg cap ORAL SCH ×3 (09:45→18:47)
[2016-10-28] MEDS: Metoprolol 25mg tab ORAL SCH ×2 (09:45→21:00)
--- NOTE | 2016-10-28 10:31 | Orthopedic Progress Note ---
Orthopedic - Progress Note Subjective Symptoms: improved Objective Vital Signs Laboratory Tests Test 10/28/16 05:25 White Blood Count 8.7 K/UL (4.8-10.8) Red Blood Count 2.92 M/UL (4.20-5.40) L Hemoglobin 9.0 G/DL (12.0-16.0) L Hematocrit 28.0 % (37.0-47.0) L Mean Corpuscular Volume 96 FL (80-99) Mean Corpuscular Hemoglobin 30.9 PG (27.0-31.0) Mean Corpuscular Hemoglobin Concent 32.2 G/DL (32.0-36.0) Red Cell Distribution Width 12.0 % (11.6-14.8) Platelet Count 127 K/UL (150-450) L Mean Platelet Volume 7.8 FL (6.5-10.1) Neutrophils (%) (Auto) 64.8 % (45.0-75.0) Lymphocytes (%) (Auto) 14.5 % (20.0-45.0) L Monocytes (%) (Auto) 17.7 % (1.0-10.0) H Eosinophils (%) (Auto) 2.1 % (0.0-3.0) Basophils (%) (Auto) 0.9 % (0.0-2.0) Sodium Level 137 mEQ/L (135-145) Potassium Level 4.1 mEQ/L (3.4-4.9) Chloride Level 97 mEQ/L (98-107) L Carbon Dioxide Level 27 mEQ/L (20-30) Anion Gap 13 (5-15) Blood Urea Nitrogen 18 mg/dL (7-23) Creatinine 1.3 mg/dL (0.5-0.9) H Estimat Glomerular Filtration Rate mL/min (>60) Glucose Level 115 mg/dL (74-106) H Calcium Level 8.9 mg/dL (8.6-10.2) Last 24 Hour Vital Signs Date Time Temp Pulse Resp B/P Pulse Ox O2 Delivery O2 Flow Rate FiO2 10/28/16 09:45 105 147/67 10/28/16 09:32 105 147/67 97 Room Air 10/28/16 08:00 98.8 122 20 164/77 94 Room Air 10/28/16 04:00 99.3 103 20 129/60 98 Room Air 10/28/16 00:00 98.5 103 20 126/74 98 Room Air 10/27/16 21:00 87 113/68 10/27/16 20:00 98.7 87 20 113/68 99 Room Air 10/27/16 15:48 97.4 98 20 128/65 98 Nasal Cannula 2.0 I&O Intake and Output 10/27/16 10/28/16 19:00 07:00 Intake Total 930 ml 800 ml Output Total 500 ml 275 ml Balance 430 ml 525 ml Intake Oral 485 ml 800 ml IV Total 445 ml Output Urine Total 500 ml 275 ml # Voids 1 Wound: clean, dry, intact Drains: none Neuro Status: normal Vascular Status: normal Additional Comments Xray reviewed. excellent Assessment Post-op Diagnosis POD 1 Procedure Performed rt hip ORIF Plan Plan: PT, discharge plan - fu Dr Han as outpt, other - 1unit prbcs. follow h&h RAUL KERN Oct 28, 2016 10:31
[2016-10-28] MEDS: Enoxaparin 30mg Inj SUBQ SCH (13:08)
--- NOTE | 2016-10-28 13:17 | Pulmonology Progress Note ---
Assessment/Plan Assessment/Plan ASSESSMENT s/p fall Right hip femoral neck fracture. s/p /3 Right hip ORIF postoperative pain Hx of HTN acute renal failure on CRI PLAN OF CARE MS floor s/p hip ORIF pain management diet as tolerated in am a/coagulation with Lovenox PT/OT eval and Rx patient with good ambulatory status prior to fall BP stable, normotensive, no need for antiHTN medications at this time, monitor clsoely dressing C/D/I, monitor IS at the bedside IVF empiric abx x 2, then dc bowel regimen creat down to 1.3, on IVF, decrease rate to 50 to avoid overload in this frail elderly female case discussed and evaluated by supervising physician Subjective Allergies: Coded Allergies: No Known Allergies (Unverified , 08/03/15) Subjective s/p surgery10/27 complete return of sensation denies pain afebrile Objective Last 24 Hour Vital Signs Date Time Temp Pulse Resp B/P Pulse Ox O2 Delivery O2 Flow Rate FiO2 10/28/16 12:00 100.2 86 17 123/57 97 Room Air 10/28/16 09:45 105 147/67 10/28/16 09:32 105 147/67 97 Room Air 10/28/16 08:00 98.8 122 20 164/77 94 Room Air 10/28/16 04:00 99.3 103 20 129/60 98 Room Air 10/28/16 00:00 98.5 103 20 126/74 98 Room Air 10/27/16 21:00 87 113/68 10/27/16 20:00 98.7 87 20 113/68 99 Room Air 10/27/16 15:48 97.4 98 20 128/65 98 Nasal Cannula 2.0 Intake and Output 10/27/16 10/28/16 19:00 07:00 Intake Total 930 ml 800 ml Output Total 500 ml 275 ml Balance 430 ml 525 ml Intake Oral 485 ml 800 ml IV Total 445 ml Output Urine Total 500 ml 275 ml # Voids 1 Objective General Appearance: no acute distress, other - elderly AA female in NAD HEENT: normocephalic, atraumatic, anicteric, mucous membranes moist Respiratory/Chest: lungs clear, no respiratory distress, no accessory muscle use Cardiovascular: normal rate, regular rhythm, no JVD Abdomen: normal bowel sounds, soft, non tender, non distended Genitourinary: normal external genitalia Extremities: no edema Skin: other - R hip dressing C/D/I Neurologic/Psychiatric: abnormal gait, alert, responsive Musculoskeletal: atrophy - BLE Laboratory Tests 10/28/16 05:25: White Blood Count 8.7, Red Blood Count 2.92L, Hemoglobin 9.0L, Hematocrit 28.0L , Mean Corpuscular Volume 96, Mean Corpuscular Hemoglobin 30.9, Mean Corpuscular Hemoglobin Concent 32.2, Red Cell Distribution Width 12.0, Platelet Count 127L, Mean Platelet Volume 7.8, Neutrophils (%) (Auto) 64.8, Lymphocytes ( %) (Auto) 14.5L, Monocytes (%) (Auto) 17.7H, Eosinophils (%) (Auto) 2.1, Basophils (%) (Auto) 0.9, Sodium Level 137, Potassium Level 4.1, Chloride Level 97L, Carbon Dioxide Level 27, Anion Gap 13, Blood Urea Nitrogen 18, Creatinine 1.3H, Estimat Glomerular Filtration Rate , Glucose Level 115H, Calcium Level 8.9 Current Medications Medications (Trade) Dose Ordered Sig/Lucy Route PRN Reason Start Time Stop Time Status Last Admin Dose Admin Acetaminophen (Tylenol) 650 mg Q4H PRN ORAL fever 10/26/16 06:15 11/25/16 06:14 10/26/16 21:16 Acetaminophen (Tylenol) 650 mg Q4H PRN ORAL temp>100 10/27/16 08:00 11/26/16 07:59 10/28/16 13:06 Acetaminophen/ Hydrocodone Bitart ([place] 5/325) 2 tab Q6H PRN ORAL Severe Pain (Pain Scale 7-10) 10/27/16 08:00 11/03/16 07:59 Acetaminophen/ Hydrocodone Bitart ([place] 7.5/325) 1 ea Q4H PRN ORAL Moderate Pain (Pain Scale 4-6) 10/27/16 08:00 11/03/16 07:59 10/28/16 06:08 Al Hydroxide/Mg Hydroxide 30 ml 30 ml Q6H PRN ORAL dyspepsia 10/26/16 06:15 11/25/16 06:14 Celecoxib (CeleBREX) 200 mg DAILY ORAL 10/28/16 09:00 11/27/16 08:59 10/28/16 09:44 Dextrose (Dextrose 50%) STAT PRN IV Hypoglycemia 10/26/16 06:15 11/25/16 06:14 Dextrose/ Electrolytes (D5 0.45%NS W/ KCl 20mEq) 1,000 ml @ 75 mls/hr [id number] IV 10/27/16 14:00 11/26/16 13:59 10/28/16 02:19 Docusate Sodium (Colace) 100 mg THREE TIMES A DAY ORAL 10/27/16 18:00 11/26/16 17:59 10/28/16 09:45 Donepezil HCl (Aricept) 10 mg DAILY ORAL 10/26/16 09:00 11/25/16 08:59 10/28/16 09:43 Enoxaparin Sodium (Lovenox) 30 mg DAILY SUBQ 10/28/16 09:00 11/27/16 08:59 10/28/16 13:08 Ferrous Sulfate (Feosol) 325 mg THREE TIMES A DAY ORAL 10/27/16 18:00 11/26/16 17:59 10/28/16 09:45 Hydromorphone HCl (Dilaudid) 1 mg Q4H PRN SUBQ Mild Pain (Pain Scale 1-3) 10/27/16 08:00 11/03/16 07:59 Levetiracetam (Keppra) 750 mg DAILY ORAL 10/26/16 09:00 11/25/16 08:59 10/28/16 09:45 Lorazepam (Ativan 2mg/ml 1ml) 0.5 mg Q4H PRN IV For Anxiety 10/26/16 06:15 11/02/16 06:14 Metoprolol Tartrate (Lopressor) 25 mg EVERY 12 HOURS ORAL 10/27/16 21:00 11/26/16 20:59 10/28/16 09:45 Morphine Sulfate (Morphine Sulfate) 1 mg Q4H PRN IVP For Pain 10/26/16 06:15 11/02/16 06:14 Ondansetron HCl (Zofran) 4 mg Q6H PRN IVP Nausea & Vomiting 10/26/16 06:15 11/25/16 06:14 Polyethylene Glycol (Miralax) 17 gm HSPRN PRN ORAL Constipation 10/26/16 06:15 11/25/16 06:14 Zolpidem Tartrate (Ambien) 5 mg HSPRN PRN ORAL Insomnia 10/26/16 06:15 11/25/16 06:14 Rusty ([facility])Sravanthi NP Oct 28, 2016 13:17
[2016-10-29 06:22] LABS: BASOPHILS % (AUTO) 0.8 % (0.0-2.0); EOSINOPHILS % (AUTO) 4.6 % (0.0-3.0); LYMPHOCYTES % (AUTO) 20.3 % (20.0-45.0); MEAN CORPUSCULAR HEMOGLOBIN 30.7 PG (27.0-31.0); MEAN CORPUSCULAR HGB CONC 32.1 G/DL (32.0-36.0); MEAN CORPUSCULAR VOLUME 96 FL (80-99); MEAN PLATELET VOLUME 7.8 FL (6.5-10.1); MONOCYTES % (AUTO) 15.9 % (1.0-10.0); NEUTROPHILS % (AUTO) 58.4 % (45.0-75.0); PLATELET COUNT 124 K/UL (150-450); RED BLOOD COUNT 2.72 M/UL (4.20-5.40); RED CELL DISTRIBUTION WIDTH 11.7 % (11.6-14.8); WHITE BLOOD COUNT 8.3 K/UL (4.8-10.8)
[2016-10-29 06:43] LABS: ANION GAP 12 (5-15); CALCIUM 8.9 mg/dL (8.6-10.2); CARBON DIOXIDE 26 mEQ/L (20-30); CHLORIDE 100 mEQ/L (98-107); CREATININE 1.5 mg/dL (0.5-0.9); HEMOLYSIS 8; SODIUM 138 mEQ/L (135-145)
--- NOTE | 2016-10-29 07:03 | Cardiology Report ---
APPROVED REPORT EXAM: Two-dimensional and M-mode echocardiogram with Doppler and color Doppler. INDICATION Pre-op evaluation M-Mode DIMENSIONS IVSd0.9 (0.7-1.1cm)Left Atrium (MM)4.3 (1.6-4.0cm) LVDd4.0 (3.5-5.6cm)Aortic Root3.4 (2.0-3.7cm) PWd0.6 (0.7-1.1cm)Aortic Cusp Exc.1.7 (1.5-2.0cm) LVDs2.0 (2.5-4.0cm) PWs1.4 cm Normal left ventricular chamber size, systolic function and wall motion. Left ventricular ejection fraction estimated to be 55-60 %. Mild left ventricular hypertrophy by 2-D. Anterior Echo-free space, may be due to pericardial fat or effusion. Mild left atrial enlargement. Right cardiac chamber sizes are within normal limits. Focal aortic valve sclerosis with adequate cusp excursion. Thickened mitral valve leaflets with normal excursion. Mitral annulus and aortic root calcification. Pulmonic valve not well visualized. Normal tricuspid valve structure. IVC at normal size with physiologic collapse. A color flow and spectral Doppler study was performed and revealed: Trace aortic regurgitation. Mild mitral regurgitation. Mitral diastolic velocities suggest reduced left ventricular relaxation c/w mild LV diastolic dysfunction (Grade I). Mild tricuspid regurgitation. Tricuspid systolic velocities suggests peak right ventricular systolic pressure of 39 mmHg, consistent with mild pulmonary hypertension. Mild pulmonic regurgitation present.
[2016-10-29 08:00] VITALS: BP 127/54
[2016-10-29] MEDS: Donepezil 10mg tab ORAL SCH (09:47)
[2016-10-29] MEDS: celeBREX 200mg Cap **SURGERY PATIENTS ONLY ORAL SCH (09:47)
[2016-10-29] MEDS: Docusate 100mg cap ORAL SCH ×3 (09:47→18:21)
[2016-10-29] MEDS: Metoprolol 25mg tab ORAL SCH ×2 (09:48→21:00)
[2016-10-29] MEDS: D5 1/2NS w/KCl 20mEq 1,000 ML IV SCH (10:00)
[2016-10-29] MEDS: Enoxaparin 30mg Inj SUBQ SCH (11:02)
[2016-10-29 12:00] VITALS: BP 104/53
--- NOTE | 2016-10-29 14:30 | General Progress Note ---
Assessment/Plan Problem List: (1) Ribs, multiple fractures ICD Codes: S22.49XA - Multiple fractures of ribs, unspecified side, initial encounter for closed fracture SNOMED: 5834691 (2) Spondylolisthesis at L4-L5 level ICD Codes: M43.16 - Spondylolisthesis, lumbar region SNOMED: 168026723 (3) Fall ICD Codes: W19.XXXA - Unspecified fall, initial encounter SNOMED: 8596052 (4) Closed right hip fracture ICD Codes: S72.001A - Fracture of unspecified part of neck of right femur, initial encounter for closed fracture SNOMED: 226069035 Status: stable, progressing, tolerating diet Assessment/Plan ot pt dit pain control cbc bmp am snf placement Subjective Allergies: Coded Allergies: No Known Allergies (Unverified , 08/03/15) All Systems: reviewed and negative except above Subjective sleepy calm Objective Last 24 Hour Vital Signs Date Time Temp Pulse Resp B/P Pulse Ox O2 Delivery O2 Flow Rate FiO2 10/29/16 12:00 98.2 62 20 104/53 99 Room Air 10/29/16 09:48 84 127/54 10/29/16 08:00 99.0 84 20 127/54 98 Room Air 10/28/16 21:06 99.1 77 20 125/56 98 Room Air 10/28/16 21:03 99.5 10/28/16 21:00 74 118/42 10/28/16 16:10 99.0 69 20 117/56 97 Room Air 10/28/16 16:04 99.0 Intake and Output 10/28/16 10/29/16 19:00 07:00 Intake Total 1350 ml Output Total 600 ml 1100 ml Balance 750 ml -1100 ml Intake Oral 1350 ml Output Urine Total 600 ml 1100 ml Laboratory Tests 10/29/16 05:20: White Blood Count 8.3, Red Blood Count 2.72L, Hemoglobin 8.4L, Hematocrit 26.1L , Mean Corpuscular Volume 96, Mean Corpuscular Hemoglobin 30.7, Mean Corpuscular Hemoglobin Concent 32.1, Red Cell Distribution Width 11.7, Platelet Count 124L, Mean Platelet Volume 7.8, Neutrophils (%) (Auto) 58.4, Lymphocytes ( %) (Auto) 20.3, Monocytes (%) (Auto) 15.9H, Eosinophils (%) (Auto) 4.6H, Basophils (%) (Auto) 0.8, Sodium Level 138, Potassium Level 4.0, Chloride Level 100, Carbon Dioxide Level 26, Anion Gap 12, Blood Urea Nitrogen 23, Creatinine 1.5H, Estimat Glomerular Filtration Rate , Glucose Level 111H, Calcium Level 8.9 Height (Feet): 5 Height (Inches): 8.00 Weight (Pounds): 111 General Appearance: lethargic EENT: normal ENT inspection Neck: normal alignment Cardiovascular: normal peripheral pulses, normal rate, regular rhythm Respiratory/Chest: chest wall non-tender, lungs clear, normal breath sounds Abdomen: normal bowel sounds, non tender, soft Extremities: normal inspection Edema: no edema noted Arm (L), no edema noted Arm (R), no edema noted Leg (L), no edema noted Leg (R), no edema noted Pedal (L), no edema noted Pedal (R), no edema noted Generalized Neurologic: responsive, motor weakness Skin: normal pigmentation, warm/dry IDA QUAN Oct 29, 2016 14:30
[2016-10-29 16:03] VITALS: BP 112/64
--- NOTE | 2016-10-29 16:03 | Pulmonology Progress Note ---
Subjective Allergies: Coded Allergies: No Known Allergies (Unverified , 08/03/15) Objective Last 24 Hour Vital Signs Date Time Temp Pulse Resp B/P Pulse Ox O2 Delivery O2 Flow Rate FiO2 10/29/16 12:00 98.2 62 20 104/53 99 Room Air 10/29/16 09:48 84 127/54 10/29/16 08:00 99.0 84 20 127/54 98 Room Air 10/28/16 21:06 99.1 77 20 125/56 98 Room Air 10/28/16 21:03 99.5 10/28/16 21:00 74 118/42 10/28/16 16:10 99.0 69 20 117/56 97 Room Air 10/28/16 16:04 99.0 Intake and Output 10/28/16 10/29/16 19:00 07:00 Intake Total 1350 ml Output Total 600 ml 1100 ml Balance 750 ml -1100 ml Intake Oral 1350 ml Output Urine Total 600 ml 1100 ml Laboratory Tests 10/29/16 05:20: White Blood Count 8.3, Red Blood Count 2.72L, Hemoglobin 8.4L, Hematocrit 26.1L , Mean Corpuscular Volume 96, Mean Corpuscular Hemoglobin 30.7, Mean Corpuscular Hemoglobin Concent 32.1, Red Cell Distribution Width 11.7, Platelet Count 124L, Mean Platelet Volume 7.8, Neutrophils (%) (Auto) 58.4, Lymphocytes ( %) (Auto) 20.3, Monocytes (%) (Auto) 15.9H, Eosinophils (%) (Auto) 4.6H, Basophils (%) (Auto) 0.8, Sodium Level 138, Potassium Level 4.0, Chloride Level 100, Carbon Dioxide Level 26, Anion Gap 12, Blood Urea Nitrogen 23, Creatinine 1.5H, Estimat Glomerular Filtration Rate , Glucose Level 111H, Calcium Level 8.9 Current Medications Medications (Trade) Dose Ordered Sig/Lucy Route PRN Reason Start Time Stop Time Status Last Admin Dose Admin Acetaminophen (Tylenol) 650 mg Q4H PRN ORAL fever 10/26/16 06:15 11/25/16 06:14 10/28/16 20:04 Acetaminophen (Tylenol) 650 mg Q4H PRN ORAL temp>100 10/27/16 08:00 11/26/16 07:59 10/28/16 13:06 Acetaminophen/ Hydrocodone Bitart ([place] 5/325) 2 tab Q6H PRN ORAL Severe Pain (Pain Scale 7-10) 10/27/16 08:00 11/03/16 07:59 Acetaminophen/ Hydrocodone Bitart ([place] 7.5/325) 1 ea Q4H PRN ORAL Moderate Pain (Pain Scale 4-6) 10/27/16 08:00 11/03/16 07:59 10/28/16 06:08 Al Hydroxide/Mg Hydroxide ([place] II) 30 ml Q6H PRN ORAL dyspepsia 10/26/16 06:15 11/25/16 06:14 Celecoxib (CeleBREX) 200 mg DAILY ORAL 10/28/16 09:00 11/27/16 08:59 10/29/16 09:47 Dextrose (Dextrose 50%) STAT PRN IV Hypoglycemia 10/26/16 06:15 11/25/16 06:14 Docusate Sodium (Colace) 100 mg THREE TIMES A DAY ORAL 10/27/16 18:00 11/26/16 17:59 10/29/16 13:00 Donepezil HCl (Aricept) 10 mg DAILY ORAL 10/26/16 09:00 11/25/16 08:59 10/29/16 09:47 Enoxaparin Sodium (Lovenox) 30 mg DAILY SUBQ 10/28/16 09:00 11/27/16 08:59 10/29/16 11:02 Ferrous Sulfate (Feosol) 325 mg THREE TIMES A DAY ORAL 10/27/16 18:00 11/26/16 17:59 10/29/16 13:00 Hydromorphone HCl (Dilaudid) 1 mg Q4H PRN SUBQ Mild Pain (Pain Scale 1-3) 10/27/16 08:00 11/03/16 07:59 Levetiracetam (Keppra) 750 mg DAILY ORAL 10/26/16 09:00 11/25/16 08:59 10/29/16 09:47 Lorazepam (Ativan 2mg/ml 1ml) 0.5 mg Q4H PRN IV For Anxiety 10/26/16 06:15 11/02/16 06:14 Metoprolol Tartrate (Lopressor) 25 mg EVERY 12 HOURS ORAL 10/27/16 21:00 11/26/16 20:59 10/29/16 09:48 Morphine Sulfate (Morphine Sulfate) 1 mg Q4H PRN IVP For Pain 10/26/16 06:15 11/02/16 06:14 Ondansetron HCl (Zofran) 4 mg Q6H PRN IVP Nausea & Vomiting 10/26/16 06:15 11/25/16 06:14 Polyethylene Glycol (Miralax) 17 gm HSPRN PRN ORAL Constipation 10/26/16 06:15 11/25/16 06:14 Zolpidem Tartrate (Ambien) 5 mg HSPRN PRN ORAL Insomnia 10/26/16 06:15 11/25/16 06:14 SABINO CARPENTER Oct 29, 2016 16:03
--- NOTE | 2016-10-29 16:35 | Cardiac Electrophysiology PN ---
Assessment/Plan Status Narrative Normal left ventricular chamber size, systolic function and wall motion. Left ventricular ejection fraction estimated to be 55-60 %. Mild left ventricular hypertrophy by 2-D. Anterior Echo-free space, may be due to pericardial fat or effusion. Mild left atrial enlargement. Right cardiac chamber sizes are within normal limits. Focal aortic valve sclerosis with adequate cusp excursion. Thickened mitral valve leaflets with normal excursion. Mitral annulus and aortic root calcification. Pulmonic valve not well visualized. Normal tricuspid valve structure. IVC at normal size with physiologic collapse. Assessment/Plan 1. Hypertension. Continue Lopressor 25 bid. 2. Status post fall without syncope. Echo showed EF 55%. 3. Right hip fracture status post open reduction and internal fixation. The patient tolerated the surgery well. 4. Anemia. DPOA refused PRBC DW RN Subjective Subjective Comfortable in NAD. Transferred to [facility]. DC planning to SNIF pending.Niece refused PRBC. Objective Last 24 Hour Vital Signs Date Time Temp Pulse Resp B/P Pulse Ox O2 Delivery O2 Flow Rate FiO2 10/29/16 16:03 98.1 70 18 112/64 Room Air 10/29/16 12:00 98.2 62 20 104/53 99 Room Air 10/29/16 09:48 84 127/54 10/29/16 08:00 99.0 84 20 127/54 98 Room Air 10/28/16 21:06 99.1 77 20 125/56 98 Room Air 10/28/16 21:03 99.5 10/28/16 21:00 74 118/42 Intake and Output 10/28/16 10/29/16 19:00 07:00 Intake Total 1350 ml Output Total 600 ml 1100 ml Balance 750 ml -1100 ml Intake Oral 1350 ml Output Urine Total 600 ml 1100 ml Laboratory Tests Test 10/29/16 05:20 White Blood Count 8.3 K/UL (4.8-10.8) Red Blood Count 2.72 M/UL (4.20-5.40) L Hemoglobin 8.4 G/DL (12.0-16.0) L Hematocrit 26.1 % (37.0-47.0) L Mean Corpuscular Volume 96 FL (80-99) Mean Corpuscular Hemoglobin 30.7 PG (27.0-31.0) Mean Corpuscular Hemoglobin Concent 32.1 G/DL (32.0-36.0) Red Cell Distribution Width 11.7 % (11.6-14.8) Platelet Count 124 K/UL (150-450) L Mean Platelet Volume 7.8 FL (6.5-10.1) Neutrophils (%) (Auto) 58.4 % (45.0-75.0) Lymphocytes (%) (Auto) 20.3 % (20.0-45.0) Monocytes (%) (Auto) 15.9 % (1.0-10.0) H Eosinophils (%) (Auto) 4.6 % (0.0-3.0) H Basophils (%) (Auto) 0.8 % (0.0-2.0) Sodium Level 138 mEQ/L (135-145) Potassium Level 4.0 mEQ/L (3.4-4.9) Chloride Level 100 mEQ/L (98-107) Carbon Dioxide Level 26 mEQ/L (20-30) Anion Gap 12 (5-15) Blood Urea Nitrogen 23 mg/dL (7-23) Creatinine 1.5 mg/dL (0.5-0.9) H Estimat Glomerular Filtration Rate mL/min (>60) Glucose Level 111 mg/dL (74-106) H Calcium Level 8.9 mg/dL (8.6-10.2) Objective HEAD AND NECK: No JVD or carotid bruits. LUNGS: Clear. CARDIOVASCULAR: Regular S1 and S2 with no gallop or murmur. ABDOMEN: Soft. EXTREMITIES: Status post right hip open reduction and internal fixation. SOPHIA MANN Oct 29, 2016 16:35
[2016-10-29 21:00] VITALS: BP 115/66
[2016-10-29 23:47] VITALS: BP 115/70
[2016-10-30 04:00] VITALS: BP 104/54
[2016-10-30 06:29] LABS: BASOPHILS % (AUTO) 1.6 % (0.0-2.0); EOSINOPHILS % (AUTO) 5.8 % (0.0-3.0); LYMPHOCYTES % (AUTO) 24.2 % (20.0-45.0); MEAN CORPUSCULAR HEMOGLOBIN 31.2 PG (27.0-31.0); MEAN CORPUSCULAR HGB CONC 32.7 G/DL (32.0-36.0); MEAN CORPUSCULAR VOLUME 96 FL (80-99); MEAN PLATELET VOLUME 7.8 FL (6.5-10.1); MONOCYTES % (AUTO) 12.8 % (1.0-10.0); NEUTROPHILS % (AUTO) 55.6 % (45.0-75.0); PLATELET COUNT 144 K/UL (150-450); RED BLOOD COUNT 2.74 M/UL (4.20-5.40); RED CELL DISTRIBUTION WIDTH 11.9 % (11.6-14.8); WHITE BLOOD COUNT 7.2 K/UL (4.8-10.8)
[2016-10-30 06:58] LABS: ANION GAP 14 (5-15); CARBON DIOXIDE 27 mEQ/L (20-30); CHLORIDE 100 mEQ/L (98-107); CREATININE 1.5 mg/dL (0.5-0.9); HEMOLYSIS 3; POTASSIUM 4.2 mEQ/L (3.4-4.9); SODIUM 141 mEQ/L (135-145)
[2016-10-30] MEDS ORDERED: Lidocaine 1% MPF 10mg/ml 5ml ONE (08:00)
[2016-10-30] MEDS ORDERED: LR 1000ml ONE (08:00)
[2016-10-30] MEDS ORDERED: Lidocaine 1% Plain 30 ml INJ ONE (08:00)
[2016-10-30] MEDS ORDERED: Midazolam 2mg/2ml Inj ONE (08:00)
[2016-10-30] MEDS ORDERED: NS Irrig 1000ml ONE (08:00)
[2016-10-30] MEDS ORDERED: Propofol 10mg/ml 100ml btl IV ONE (08:00)
[2016-10-30] MEDS ORDERED: Alfentanil 2ml Inj ONE (08:00)
[2016-10-30] MEDS ORDERED: Sterile Water Irrig 1000ml IRRIG ONE (08:00)
[2016-10-30 08:35] VITALS: BP 139/78
[2016-10-30] MEDS: Donepezil 10mg tab ORAL SCH (09:16)
[2016-10-30] MEDS: Docusate 100mg cap ORAL SCH ×2 (09:16→12:50)
[2016-10-30] MEDS: celeBREX 200mg Cap **SURGERY PATIENTS ONLY ORAL SCH (09:17)
[2016-10-30] MEDS: Metoprolol 25mg tab ORAL SCH (09:17)
[2016-10-30] MEDS: Enoxaparin 30mg Inj SUBQ SCH (09:18)
[2016-10-30 11:40] VITALS: BP 113/44
--- NOTE | 2016-10-30 15:31 | General Progress Note ---
Assessment/Plan Problem List: (1) Ribs, multiple fractures ICD Codes: S22.49XA - Multiple fractures of ribs, unspecified side, initial encounter for closed fracture SNOMED: 4757037 (2) Spondylolisthesis at L4-L5 level ICD Codes: M43.16 - Spondylolisthesis, lumbar region SNOMED: 414281011 (3) Fall ICD Codes: W19.XXXA - Unspecified fall, initial encounter SNOMED: 6819760 (4) Closed right hip fracture ICD Codes: S72.001A - Fracture of unspecified part of neck of right femur, initial encounter for closed fracture SNOMED: 774615684 Status: stable, progressing, tolerating diet Assessment/Plan ot pt diet pain control dc tp snf Subjective Constitutional: Reports: weakness Allergies: Coded Allergies: No Known Allergies (Unverified , 08/03/15) All Systems: reviewed and negative except above Subjective calm Objective Last 24 Hour Vital Signs Date Time Temp Pulse Resp B/P Pulse Ox O2 Delivery O2 Flow Rate FiO2 10/30/16 11:40 97.3 54 16 113/44 99 Room Air 10/30/16 09:17 89 139/78 10/30/16 08:35 97.0 89 16 139/78 98 Room Air 10/30/16 04:00 98.1 63 18 104/54 99 Room Air 10/29/16 23:47 98.0 73 18 115/70 97 Room Air 10/29/16 21:00 70 115/66 10/29/16 21:00 98.0 70 18 115/66 97 Room Air 10/29/16 16:03 98.1 70 18 112/64 Room Air Intake and Output 10/29/16 10/30/16 19:00 07:00 Intake Total 360 ml Output Total 450 ml Balance -90 ml Intake Oral 360 ml Output Urine Total 450 ml # Voids 1 4 # Bowel Movements 1 1 Laboratory Tests 10/30/16 05:55: White Blood Count 7.2, Red Blood Count 2.74L, Hemoglobin 8.6L, Hematocrit 26.2L , Mean Corpuscular Volume 96, Mean Corpuscular Hemoglobin 31.2H, Mean Corpuscular Hemoglobin Concent 32.7, Red Cell Distribution Width 11.9, Platelet Count 144L, Mean Platelet Volume 7.8, Neutrophils (%) (Auto) 55.6, Lymphocytes ( %) (Auto) 24.2, Monocytes (%) (Auto) 12.8H, Eosinophils (%) (Auto) 5.8H, Basophils (%) (Auto) 1.6, Sodium Level 141, Potassium Level 4.2, Chloride Level 100, Carbon Dioxide Level 27, Anion Gap 14, Blood Urea Nitrogen 28H, Creatinine 1.5H, Estimat Glomerular Filtration Rate , Glucose Level 109H, Calcium Level 9.0 Height (Feet): 5 Height (Inches): 8.00 Weight (Pounds): 111 General Appearance: lethargic EENT: normal ENT inspection Neck: normal alignment Cardiovascular: normal peripheral pulses, normal rate, regular rhythm Respiratory/Chest: chest wall non-tender, lungs clear, normal breath sounds Abdomen: normal bowel sounds, non tender, soft Extremities: normal inspection Edema: no edema noted Arm (L), no edema noted Arm (R), no edema noted Leg (L), no edema noted Leg (R), no edema noted Pedal (L), no edema noted Pedal (R), no edema noted Generalized Neurologic: responsive, motor weakness Skin: normal pigmentation, warm/dry IDA QUAN Oct 30, 2016 15:31
[2016-10-30 15:36] VITALS: BP 110/48
--- NOTE | 2016-10-30 15:41 | Cardiac Electrophysiology PN ---
Assessment/Plan Status Narrative Normal left ventricular chamber size, systolic function and wall motion. Left ventricular ejection fraction estimated to be 55-60 %. Mild left ventricular hypertrophy by 2-D. Anterior Echo-free space, may be due to pericardial fat or effusion. Mild left atrial enlargement. Right cardiac chamber sizes are within normal limits. Focal aortic valve sclerosis with adequate cusp excursion. Thickened mitral valve leaflets with normal excursion. Mitral annulus and aortic root calcification. Pulmonic valve not well visualized. Normal tricuspid valve structure. IVC at normal size with physiologic collapse. Assessment/Plan 1. Hypertension. Continue Lopressor 25 bid. 2. Status post fall without syncope. Echo showed EF 55%. 3. Right hip fracture status post open reduction and internal fixation. The patient tolerated the surgery well. 4. Anemia.Stable now. DPOA refused PRBC DW RN and Dr Elam Subjective Subjective Comfortable in NAD.On NMB. DC planning to SNIF pending today. Objective Last 24 Hour Vital Signs Date Time Temp Pulse Resp B/P Pulse Ox O2 Delivery O2 Flow Rate FiO2 10/30/16 15:36 97.7 58 16 110/48 99 Room Air 10/30/16 11:40 97.3 54 16 113/44 99 Room Air 10/30/16 09:17 89 139/78 10/30/16 08:35 97.0 89 16 139/78 98 Room Air 10/30/16 04:00 98.1 63 18 104/54 99 Room Air 10/29/16 23:47 98.0 73 18 115/70 97 Room Air 10/29/16 21:00 70 115/66 10/29/16 21:00 98.0 70 18 115/66 97 Room Air 10/29/16 16:03 98.1 70 18 112/64 Room Air Intake and Output 10/29/16 10/30/16 19:00 07:00 Intake Total 360 ml Output Total 450 ml Balance -90 ml Intake Oral 360 ml Output Urine Total 450 ml # Voids 1 4 # Bowel Movements 1 1 Laboratory Tests Test 10/30/16 05:55 White Blood Count 7.2 K/UL (4.8-10.8) Red Blood Count 2.74 M/UL (4.20-5.40) L Hemoglobin 8.6 G/DL (12.0-16.0) L Hematocrit 26.2 % (37.0-47.0) L Mean Corpuscular Volume 96 FL (80-99) Mean Corpuscular Hemoglobin 31.2 PG (27.0-31.0) H Mean Corpuscular Hemoglobin Concent 32.7 G/DL (32.0-36.0) Red Cell Distribution Width 11.9 % (11.6-14.8) Platelet Count 144 K/UL (150-450) L Mean Platelet Volume 7.8 FL (6.5-10.1) Neutrophils (%) (Auto) 55.6 % (45.0-75.0) Lymphocytes (%) (Auto) 24.2 % (20.0-45.0) Monocytes (%) (Auto) 12.8 % (1.0-10.0) H Eosinophils (%) (Auto) 5.8 % (0.0-3.0) H Basophils (%) (Auto) 1.6 % (0.0-2.0) Sodium Level 141 mEQ/L (135-145) Potassium Level 4.2 mEQ/L (3.4-4.9) Chloride Level 100 mEQ/L (98-107) Carbon Dioxide Level 27 mEQ/L (20-30) Anion Gap 14 (5-15) Blood Urea Nitrogen 28 mg/dL (7-23) H Creatinine 1.5 mg/dL (0.5-0.9) H Estimat Glomerular Filtration Rate mL/min (>60) Glucose Level 109 mg/dL (74-106) H Calcium Level 9.0 mg/dL (8.6-10.2) Objective HEAD AND NECK: No JVD or carotid bruits. LUNGS: Clear. CARDIOVASCULAR: Regular S1 and S2 with no gallop or murmur. ABDOMEN: Soft. EXTREMITIES: Status post right hip open reduction and internal fixation. SOPHIA MANN Oct 30, 2016 15:41
[2016-10-30] MEDS ORDERED: ACETAMINOPHEN325 M1 ORAL (15:55)
[2016-10-30] MEDS ORDERED: MYLANTA30 M1 PO (15:58)
[2016-10-30] MEDS ORDERED: CELEBREX200 MG ORAL (15:59)
[2016-10-30] MEDS ORDERED: COLACE100 MG/10 ORAL (16:00)
[2016-10-30] MEDS ORDERED: DOCUSATE CALCI240 MG PO (16:01)
[2016-10-30] MEDS ORDERED: DOCUSATE SODIU100 MG ORAL (16:02)
[2016-10-30] MEDS ORDERED: DONEPEZIL HCL10 MG ORAL (16:03)
[2016-10-30] MEDS ORDERED: LOVENOX30 MG/0.3 SQ (16:05)
[2016-10-30] MEDS ORDERED: FEOSOL1 TAB ORAL (16:07)
[2016-10-30] MEDS ORDERED: NORCO 5-325 TA1 EACH ORAL (16:08)
[2016-10-30] MEDS ORDERED: AMBIEN5 MG ORAL (16:11)
[2016-10-30] MEDS ORDERED: MIRALAX17 G2 ORAL (16:12)
[2016-10-30] MEDS ORDERED: ZOFRAN4 M1 IVP (16:13)
[2016-10-30] MEDS ORDERED: ZOFRAN 4 MG4 MG/2 ML IV (16:13)
[2016-10-30] MEDS ORDERED: MORPHINE 22 MG/1 ML IV (16:15)
[2016-10-30] MEDS ORDERED: METOPROLOL TART25 MG ORAL (16:17)
[2016-10-30] MEDS ORDERED: LORAZEPAM2 MG/1 M3 IV (16:18)
[2016-10-30] MEDS ORDERED: KEPPRA750 MG ORAL (16:19)
[2016-10-30] MEDS: Norco 7.5mg/325mg tab ORAL PRN (17:54)
--- NOTE | 2016-10-30 19:37 | Pulmonology Progress Note ---
Subjective Allergies: Coded Allergies: No Known Allergies (Unverified , 08/03/15) Objective Last 24 Hour Vital Signs Date Time Temp Pulse Resp B/P Pulse Ox O2 Delivery O2 Flow Rate FiO2 10/30/16 15:36 97.7 58 16 110/48 99 Room Air 10/30/16 11:40 97.3 54 16 113/44 99 Room Air 10/30/16 09:17 89 139/78 10/30/16 08:35 97.0 89 16 139/78 98 Room Air 10/30/16 04:00 98.1 63 18 104/54 99 Room Air 10/29/16 23:47 98.0 73 18 115/70 97 Room Air 10/29/16 21:00 70 115/66 10/29/16 21:00 98.0 70 18 115/66 97 Room Air Intake and Output 10/29/16 10/30/16 19:00 07:00 Intake Total 360 ml Output Total 450 ml Balance -90 ml Intake Oral 360 ml Output Urine Total 450 ml # Voids 1 4 # Bowel Movements 1 1 Laboratory Tests 10/30/16 05:55: White Blood Count 7.2, Red Blood Count 2.74L, Hemoglobin 8.6L, Hematocrit 26.2L , Mean Corpuscular Volume 96, Mean Corpuscular Hemoglobin 31.2H, Mean Corpuscular Hemoglobin Concent 32.7, Red Cell Distribution Width 11.9, Platelet Count 144L, Mean Platelet Volume 7.8, Neutrophils (%) (Auto) 55.6, Lymphocytes ( %) (Auto) 24.2, Monocytes (%) (Auto) 12.8H, Eosinophils (%) (Auto) 5.8H, Basophils (%) (Auto) 1.6, Sodium Level 141, Potassium Level 4.2, Chloride Level 100, Carbon Dioxide Level 27, Anion Gap 14, Blood Urea Nitrogen 28H, Creatinine 1.5H, Estimat Glomerular Filtration Rate , Glucose Level 109H, Calcium Level 9.0 SABINO CARPENTER Oct 30, 2016 19:37
--- NOTE | 2016-10-31 18:51 | Discharge Summary ---
Discharge Summary Hospital Course Date of Admission Oct 26, 2016 at 00:47 Date of Discharge Oct 30, 2016 at 18:04 Admitting Diagnosis RIGHT HIP FRACTURE HPI Ariella Lynn is a 89 year old female who was admitted on Oct 26, 2016 at 00:47 for Right Hip Fracture Hospital Course [id number] Discharge Discharge Disposition Patient was discharged to SNF/Subacute Facility(03) Discharge Diagnoses: Jeri López NP Oct 31, 2016 18:50
--- NOTE | 2016-11-01 02:16 | Discharge Summary 2 SIG ---
DATE OF ADMISSION: 10/26/2016 DATE OF DISCHARGE: 10/30/2016 CONSULTANTS: 1. Gabriel Han M.D. 2. Connie Romero M.D. 3. Rommel Greenberg M.D. BRIEF HOSPITAL STAY: The patient is an 89-year-old female, who was brought in for fall. The patient was ambulatory prior to surgery. She fell and reported increased pain to the right hip as well as to the lower back. Denies numbness to extremities. On evaluation at ED, CT imaging of the lumbar spine showed spondylolisthesis on L4 and L5 as well as fracture of the right femoral neck. The patient was admitted for further evaluation and management and was seen by orthopedic surgery. X-ray of the hip showed a subacute fracture of the right femoral neck. The patient underwent right hip open reduction and internal fixation by Dr. Han. Postoperatively, she was given pain management and was started on anticoagulation with Lovenox. Dr. Greenberg was consulted for evaluation of hypertension and was started on low-dose beta kevin. Echocardiogram done showed ejection fraction of 55% to 60% with mild pulmonary hypertension and mild mitral regurgitation. She had an episode of a drop in hematocrit. However, no transfusion was given DPOA refused consent. She underwent physical therapy and was eventually [facility]. FINAL DIAGNOSES: 1. Right hip fracture secondary to fall status post open reduction and internal fixation. 2. Postop anemia. 3. Hypertension. 4. Postoperative pain. DISPOSITION: The patient was discharged to SNF. Jani Elam D.O. I have been assigned to dictate discharge summary on this account and I was not involved in the patient's management. Jeri López N.P. DR: SEJAL JOB#: [id number] CC: RIOS
== END 2016-10-30 18:04 | DRG 481 ==
LOC: EMR 22:18 → 4W 10-26 00:47 → EDBEDREQ 10-26 02:06 → 4E 10-26 12:15
PROC: 0QS634Z Reposition Right Upper Femur with Internal Fixation Device, Percutaneous Approach (ICD-10-PCS; principal; 2016-10-27 08:00)
DX: S72.001A Fracture of unspecified part of neck of right femur, initial encounter for closed fracture (principal); N17.9 Acute kidney failure, unspecified; S22.49XA Multiple fractures of ribs, unspecified side, initial encounter for closed fracture; F03.90 Unspecified dementia, unspecified severity, without behavioral disturbance, psychotic disturbance, mood disturbance, and anxiety; W01.0XXA Fall on same level from slipping, tripping and stumbling without subsequent striking against object, initial encounter; D64.9 Anemia, unspecified; R53.1 Weakness; G89.18 Other acute postprocedural pain; M43.16 Spondylolisthesis, lumbar region; S72.011A Unspecified intracapsular fracture of right femur, initial encounter for closed fracture; I12.9 Hypertensive chronic kidney disease with stage 1 through stage 4 chronic kidney disease, or unspecified chronic kidney disease; N18.9 Chronic kidney disease, unspecified
CPT/HCPCS: 36415; 71010; 72131; 72170; 72192; 76000; 80048; 80053; 80061; 80299; 84443; 84484; 85025; 85610; 85730; 86850; 86900; 86901; 86920; 93005; 93306; 94003; 94150; J2250; J3490